=== PATIENT | female | born 1970 | race Caucasian/White ===

== ENCOUNTER → 2018-03-05 09:45 | Outpatient (CLI) | payer OTHER, SELFPAY ==
--- NOTE | 2018-03-05 09:48 | DI.MRI.S_ITS ---
PROCEDURE: MR SHOULDER RT WO CON INDICATIONS: RIGHT SHOULDER PAIN FROM FALL TECHNIQUE: Noncontrast oblique coronal T2 fast spin echo with fat saturation, oblique sagittal T1 spin echo and T2 fast spin echo with fat saturation, axial T1 spin echo and T2 fast spin echo with fat saturation through the shoulder. COMPARISON: [facility], MR, SHOULDER WITHOUT CONTRAST, 11/28/2012, 13:48. FINDINGS: Image quality: Excellent. Rotator cuff: There is tendinosis or low-grade articular and bursal surface partial-thickness tear involving distal supraspinatus and infraspinatus. Distal subscapularis tendinosis is seen. No full-thickness rotator cuff tendon rupture. Sagittal images demonstrate no significant muscle atrophy. Bones and bursae: There is extensive marrow edema involving the lateral portion of right femoral head and neck abdomen involving greater tuberosity. Cortical disruption involving anterolateral cortex of greater tuberosity is seen, consistent with a nondisplaced fracture in this region. No other area of abnormal marrow signal is seen. No other fracture or dislocation. Mild a.c. joint osteoarthritis is seen. without an os acromiale. Trace amount of subacromial-subdeltoid fluid is present. No gross loose body. Capsule and soft tissues: In the absence of intra-articular contrast, the labrum and glenohumeral ligaments appear intact. Mild degenerative changes of posterior labrum is again seen and not significantly changed. The long head of the biceps tendon demonstrates normal location and morphology. The rotator interval appears normal, without fibrosis. The coracohumeral ligament is normal in thickness. IMPRESSION: 1. Bony contusion and subtle nondisplaced fracture involving greater tuberosity of humeral head. No other fracture or dislocation. Mild a.c. joint arthritis. 2. Tendinosis and low-grade articular and bursal surface partial-thickness involving distal supraspinatus and infraspinatus. Distal subscapularis tendinosis. No full-thickness rotator cuff tendon tear. 3. No evidence of focal labral tear. Dictated by: Antione Milner M.D. on 03/05/2018 at 10:49 Approved by: Antione Milner M.D. on 03/05/2018 at 10:57
== END ==
PROVIDERS: Visit Provider Physician Assistant
DX: S42.254A Nondisplaced fracture of greater tuberosity of right humerus, initial encounter for closed fracture (principal); M19.011 Primary osteoarthritis, right shoulder
CPT/HCPCS: 73221

== ENCOUNTER → 2018-05-08 10:03 | Outpatient (CLI) | payer OTHER, SELFPAY ==
--- NOTE | 2018-05-08 | DI.MG.S_ITS ---
BILATERAL DIGITAL SCREENING MAMMOGRAM 3D/2D WITH CAD WITH AUGMENTATION: 05/08/2018 CLINICAL: Routine screening. Comparison is made to exams dated: 03/05/2017 mammogram, 12/28/2015 mammogram, and 09/07/2014 mammogram - [facility]. The tissue of both breasts is heterogeneously dense. This may lower the sensitivity of mammography. Current study was also evaluated with a Computer Aided Detection (CAD) system. Bilateral breast implants are intact. No significant masses, calcifications, or other findings are seen in either breast. There has been no significant interval change. IMPRESSION: NEGATIVE There is no mammographic evidence of malignancy. A 1 year screening mammogram is recommended.(05/09/2019) This exam was interpreted at Station ID: [id number]. NOTE: For mammograms, a report in lay terms will be sent to the patient. Approximately 15% of breast malignancies will not be visualized mammographically. In the management of a palpable breast mass, a negative mammogram must not discourage biopsy of a clinically suspicious lesion. Electronically Signed By: Jonny worrell/elodia:05/08/2018 11:37:11 letter sent: Normal Exam ACR BI-RADS Category 1: Negative 3341F
== END ==
DX: Z12.31 Encounter for screening mammogram for malignant neoplasm of breast (principal)
CPT/HCPCS: 77063; 77067

== ENCOUNTER → 2020-01-29 11:04 | Outpatient (CLI) | payer OTHER, SELFPAY ==
[2020-01-29 12:50] LABS: TSH w/ Reflex to FT4 2.21 uIU/mL (0.47-4.68)
== END ==
DX: Z78.0 Asymptomatic menopausal state (principal)
CPT/HCPCS: 36415; 83001; 84443

== ENCOUNTER → 2020-02-11 17:08 | Outpatient (CLI) | payer OTHER, SELFPAY ==
--- NOTE | 2020-02-11 17:18 | DI.MG.S_ITS ---
BILATERAL DIGITAL SCREENING MAMMOGRAM 3D/2D WITH CAD WITH AUGMENTATION: 02/11/2020 CLINICAL: Patient presents for routine screening. S/P bilateral augmentation. Comparison is made to exams dated: 05/08/2018 mammogram, 03/05/2017 mammogram, and 12/28/2015 mammogram - [facility]. The tissue of both breasts is heterogeneously dense. This may lower the sensitivity of mammography. Current study was also evaluated with a Computer Aided Detection (CAD) system. Bilateral breast implants are intact. No significant masses, calcifications, or other findings are seen in either breast. There has been no significant interval change. IMPRESSION: NEGATIVE There is no mammographic evidence of malignancy. A 1 year screening mammogram is recommended. This exam was interpreted at Station ID: [id number]. NOTE: For mammograms, a report in lay terms will be sent to the patient. Approximately 15% of breast malignancies will not be visualized mammographically. In the management of a palpable breast mass, a negative mammogram must not discourage biopsy of a clinically suspicious lesion. Electronically Signed By: Jonny worrell/elodia:02/12/2020 08:05:33 letter sent: Normal Exam ACR BI-RADS Category 1: Negative 3341F
== END ==
DX: Z12.31 Encounter for screening mammogram for malignant neoplasm of breast (principal); Z98.82 Breast implant status
CPT/HCPCS: 77063; 77067

== ENCOUNTER → 2020-03-06 08:34 | Outpatient (CLI) | payer OTHER, SELFPAY ==
[2020-03-07 20:30] LABS: COVID19 Sendout Not Detected (Not Detect)
== END ==
PROVIDERS: Visit Provider Nurse Practitioner
DX: Z11.59 Encounter for screening for other viral diseases (principal)
CPT/HCPCS: 87635

== ENCOUNTER 2020-03-09 13:39 | Day surgery (SDC) | payer OTHER, SELFPAY ==
[2020-03-02 15:00] VITALS: BMI 29.9
[2020-03-09] VITALS (8 sets, daily range): BP systolic 129–152; BP diastolic 76–111; PULSE 75–95; RESP 11–18; TEMP 35.7–36.6; O2SAT 95–100; BMI 29.9
--- NOTE | 2020-03-09 | DI.RAD.S_ITS ---
PROCEDURE: XR LUMBAR SPINE 2-3V INDICATIONS: L4-5 MICRODISCECTOMY TECHNIQUE: A total of 2 views of the lumbar spine were acquired. COMPARISON: [facility], , -SPINE 2-3 VIEWS, 01/28/2015, 10:54. FINDINGS: Bones: Preoperative evaluation showing port for access for L4-L5 microdiscectomy to be superimposed on the posterior elements of L4-L5. The laterality of port positioning on this straight frontal view is not available from the imaging. Soft tissues: Overlying bowel gas pattern is normal. No suspicious soft tissue calcifications. IMPRESSION: L3-4 posterior micro discectomy port localization but laterality is not provided from the images. Dictated by: Chris Pool M.D. on 03/09/2020 at 16:20 Approved by: Chris Pool M.D. on 03/09/2020 at 16:22
[2020-03-09] MEDS: LACTATED RINGERS 1,000 ML 42 ML IV (14:29)
--- NOTE | 2020-03-09 14:34 | PM.PREOP ---
Pre-operative Note COVID-19 COVID-19 status: Negative Result date/Date tested (Pos, Neg/Pending): 03/07/20 Interval Note History & Physical reviewed/Exam performed by Physician: Yes Changes to H&P: No
[2020-03-09] MEDS: CEFAZOLIN 2 GM/100 ML FROZ.PIGGY IV (15:00)
--- NOTE | 2020-03-09 15:30 | SUR.OPER ---
Prone on spine table, head in foam head support, padded chest and pelvic supports, gel pad at knees, lower legs supported by pillows; nipples, genitalia and toes free of pressure, arms secured on foam padded arm boards at <90 degrees abduction. Tape over blanket at thigh secured to table.
[2020-03-09] MEDS: BUPIVACAINE 0.25% W/ EPI 30 ML VIAL INJ (15:39)
--- NOTE | 2020-03-09 15:58 | P.OP_ITS ---
Operative Date/Time/Diagnoses Date of procedure: 03/09/20 Time of procedure: 14:58 Pre-op diagnosis: 1. L4-5 disc herniation 2. L4-5 spinal stenosis with radiculopathy Post-op diagnosis: same Procedure & Clinicians Procedure: 1. L4-5 left hemilaminectomy 2. Utilization of microsurgical technique and operating microscope Same procedure as scheduled: Yes Indications: Patient has been having chronic back pain and worsening lumbar radiculopathy. Patient failed multiple conservative management with worsening pain weakness and numbness in her lower extremity. Patient has been having difficulty performing activity of daily living. After discussing risks benefits of treatment options, patient elected proceed with surgery. Surgeon: Lu Otoole Cardiology Teacher: Candace Greene'Brien Click Yes if Unassisted: No Anesthesia Type: General Operative Notes Closure Type: primary Specimen(s): none sent Estimated Blood Loss (mL): 5 Blood products transfused: none Procedure in detail: Patient was seen in the preoperative area. Risks and benefits of the surgery was discussed with the patient. Informed consent was obtained from the patient and placed in the chart. Surgical site was marked. Patient was taken to the operative room. General anesthesia was administered. Prophylactic antibiotic was given to the patient less than 30 min before the incision was made. Patient was placed into a prone position on the Pablo table. Patient's back was then prepped and draped in the sterile fashion. Time- out was performed at this time. Using AP and lateral C-arm imaging the interval between L4-5 was identified and marked on patient's back. A 1 inch incision 1 in from midline was made on the left side. The fascia was incised in line with skin incision. Globus MARS retractors was placed inside the incision and docked onto the L4 lamina. Using microsurgical technique and operating microscope, a L4 hemilaminectomy was performed using a Kerrison rongeur. Liagamentum flavum was resected at the site of the hemilaminectomy. The disc space at L4-5 was identified. Microdiscectomy was performed by incising the annulus with #11 blade. Microcurettes and pituitary was used to removed herniated disc fragments of disc from the epidural space. After the microdiskectomy was completed, the area medial lateral superior and inferior to the area of the microdiskectomy was inspected and explored using a micro curette. No other impinging structure was identified. The wound was then irrigated with sterile normal saline. 40 mg Depo-Medrol was placed into the epidural space. The deep fascia was closed with 1-0 Vicryl. The subcutaneous tissue was closed with 2-0 Vicryl. The skin was closed with skin frances. Patient tolerated the procedure well. There were no complications. Patient was transferred recovery room in stable condition. Complications: none Post-operative Condition: stable Disposition: PACU Plan for aftercare: Discharge to home
[2020-03-09] MEDS: ACETAMINOPHEN 325 MG TABLET 650 MG PO (16:14)
[2020-03-09] MEDS: fentaNYL 100 MCG/2 ML INJ IV ×2 (16:25→16:29)
== END 2020-03-09 17:08 | disposition home or self-care (01) ==
PROVIDERS: Referring Provider Orthopaedic Surgery Orthopaedic Surgery of the Spine; Visit Provider Orthopaedic Surgery Orthopaedic Surgery of the Spine
PROC: (CPT 63030; principal; 2020-03-09 15:45)
DX: M51.16 Intervertebral disc disorders with radiculopathy, lumbar region (principal)
CPT/HCPCS: 63030; 72100; 76000; J0690; J1100; J2405; J2704; J2920; J3010

== ENCOUNTER → 2020-04-15 12:34 | Outpatient (CLI) | payer OTHER, SELFPAY ==
--- NOTE | 2020-04-15 12:36 | DI.RAD.S_ITS ---
PROCEDURE: XR SHOULDER LT MIN 2V INDICATIONS: l shoulder pain TECHNIQUE: 3 views of the shoulder were acquired. COMPARISON: [facility], , SHOULDER MINIMUM 2VIEW RIGHT, 10/28/2007, 15:09. FINDINGS: Bones: No fracture. Severe calcific tendinitis. Soft tissues: No suspicious soft tissue calcifications. IMPRESSION: Severe calcific tendinitis Dictated by: Bayron Fuentes M.D. on 04/15/2020 at 12:56 Approved by: Bayron Fuentes M.D. on 04/15/2020 at 12:59
== END ==
PROVIDERS: Referring Provider Physician Assistant; Visit Provider Physician Assistant
DX: M25.512 Pain in left shoulder (principal); M75.32 Calcific tendinitis of left shoulder
CPT/HCPCS: 73030

== ENCOUNTER 2020-04-24 17:39 | Emergency (ER) | payer OTHER, SELFPAY ==
[2020-04-24 17:42] VITALS: BP 197/106; PULSE 101; RESP 18; O2SAT 97; BMI 27.9
--- NOTE | 2020-04-24 18:31 | PC.NURSE ---
patient states it difficult to move the shoulder, states she has been using her right hand to move the left arm where she needs it for comfort.
--- NOTE | 2020-04-24 18:54 | ED_ITS ---
HPI - Extremity Injury (Upper) General Chief Complaint: Extremity Injury, Upper Stated Complaint: states severe tendenitis left shoulder Time Seen by Provider: 04/24/20 17:53 Source: patient and family Mode of arrival: Ambulatory Limitations: no limitations History of Present Illness HPI narrative: Patient here with . She states she is not not allergic to hydrocodone. She states opiates is make her stay awake. No rash or itching or trouble breathing. Patient here for left shoulder pain ongoing for past 2 weeks. Seen by urgent care recently and had Toradol without relief. Had x-ray on April 15, 2020 as well. Patient does have orthopedic provider that follows her for her shoulder pain on left and right side. Has appointment with him on May 05. Nearly 20 years ago had impingement surgery on both shoulders. Has been doing well with tendinitis until past 2 weeks. X-ray shows calcific tendinitis left shoulder. Pain posterior left shoulder radiates anteriorly. No numbness tingling or weakness. Increased pain with movement. Causing spasms to the left trapezius/neck. Does have a sling at home. Blood pressure noted. Blood pressure noted. She states is due to the pain in left shoulder. She has no history of high blood pressure. No headache no chest pain no dizziness no numbness tingling or weakness. Patient asymptomatic with a blood pressure. She understands will follow up with primary care this week for recheck. Related Data Home Medications Medication Instructions Recorded Confirmed cholecalciferol (vitamin D3) 1,000 iu PO BID #0 04/27/11 04/15/20 [Vitamin D3] Lactobacillus acidophilus 10,000 mmu cells PO DAILY 03/03/18 04/15/20 biotin 1 mg capsule 5,000 mg PO DAILY 01/26/20 04/15/20 vitamin B complex 1 tab PO DAILY 01/26/20 04/15/20 ascorbic acid (vitamin C) [Vitamin 500 mg PO DAILY 03/09/20 04/15/20 C] calcium carbonate [Calcium 500] 1,000 mg PO DAILY 03/09/20 04/15/20 magnesium citrate 300 mg PO DAILY 03/09/20 04/15/20 Previous Rx's Medication Instructions Recorded spironolactone 25 mg tablet 25 mg PO BID #180 tab 03/04/20 venlafaxine 75 mg capsule,extended 75 mg PO TID #270 cap 03/04/20 release 24 hr tramadol 50 mg PO Q8H PRN #30 tab 03/09/20 baclofen 20 mg PO BEDTIME #10 tab 04/24/20 hydrocodone-acetaminophen 1 tab PO Q8H PRN #14 tab 04/24/20 ondansetron 4 mg PO Q8H PRN #10 tab 04/24/20 Allergies Allergy/AdvReac Type Severity Reaction Status Date / Time codeine [CODEINE] AdvReac Mild MAKES ME Verified 04/15/20 12:09 OUT OF IT Review of Systems Review of Systems Narrative: GENERAL: Denies chills, fatigue, malaise, fever, sweats. HEENT: Denies sinus pain, ear pain, sore throat, difficulty swallowing, dizziness. RESPIRATORY: Denies dyspnea, cough, wheezing, hemoptysis, sputum. CARDIOVASCULAR: Denies chest pain, palpitations, orthopnea, edema, GASTROINTESTINAL: Denies nausea, vomiting, abdominal pain, diarrhea, constipation, melena. : Denies dysuria, frequency, incontinence, hematuria, urinary retention. MUSCULOSKELETAL: denies weakness, complains of joint pain, or bony pain SKIN: Denies rash, skin lesions NEUROLOGIC: Denies weakness, headache, numbness, change in speech, confusion, seizures, incoordination. PSYCHIATRIC: No concerning psychosocial issues. ROS Unobtainable: All systems reviewed & are unremarkable except as noted in HPI and below Patient History Surgical History History of carpal tunnel repair Hx of cholecystectomy (Acute) Status post breast augmentation Family History Father Age: 73 Non Hodgkin's lymphoma Heart attack Cancer Mother Age: 72 Stroke Type 2 diabetes mellitus Social History household members: spouse and children Smoking Status: Never smoker alcohol intake: current Smoking Status: Never smoker alcohol intake frequency: a few times a month Substance Use Type: marijuana Exam Narrative Exam Narrative: GENERAL: patient appears stated age. Well-nourished, well-developed patient, in no distress, not toxic HEAD: Atraumatic. Normocephalic. EYES: Pupils equal round and reactive. Extraocular motions intact. No scleral icterus. No injection or drainage. ENT: Nose without bleeding, purulent drainage. Throat without erythema, tonsillar hypertrophy or exudate. Airway patent. NECK: Trachea midline. No midline tenderness or step-off. There is left paracervical and trapezius muscle spasm and tenderness. EXTREMITIES: No edema examination left upper extremity. Strong chemical handler in radial pulse with light touch intact deltoid and fingertips and thumb. Patient in a gown. Nontender elbow and wrist. Able to supinate and pronate. Very limited range of motion at the shoulder due to pain. Unable to abduct fully to 90?. Unable to bring hand behind the back. Increased pain with forward flexion and internal and external rotation. BACK: Nontender without deformity or crepitance. No flank tenderness. NEURO: AOx4. SKIN: No rash or erythema of visible areas PSYCH: Not anxious, is cooperative Initial Vital Signs Initial Vital Signs: Vital Signs Pulse Rate 101 H 04/24/20 17:42 Respiratory Rate 18 04/24/20 17:42 Blood Pressure 197/106 H 04/24/20 17:42 Pulse Oximetry 97 04/24/20 17:42 Course Orders Ordered: Discontinued Medications Hydrocodone Bitart/Acetaminophen (Pateros 5/325) 2 tab PO NOW ONE Stop: 04/24/20 18:50 Last Admin: 04/24/20 18:58 Dose: 2 tab Documented by: YVETTE Dexamethasone (Decadron) 10 mg IM NOW ONE Stop: 04/24/20 18:48 Last Admin: 04/24/20 18:58 Dose: 10 mg Documented by: YVETTE Ondansetron HCl (Zofran Odt) 4 mg SL NOW ONE Stop: 04/24/20 18:48 Last Admin: 04/24/20 18:58 Dose: 4 mg Documented by: YVETTE Reevaluation(s) Reevaluation #1: Blood pressure improved, 162/77. Patient states pain is better. Elevated blood pressure likely due to pain on arrival. Since pain improved and blood pressure improved. Patient and desire discharge home Time: 20:05 Vital Signs Vital signs: Vital Signs - 8 hr 04/24/20 17:42 04/24/20 19:29 04/24/20 19:39 Pulse Rate 101 H 88 83 Respiratory Rate 18 16 16 Blood Pressure 197/106 H 176/100 H 155/72 H Pulse Oximetry 97 100 96 MDM - Extremity Injury (Upper) Differential Diagnosis Differential diagnosis: Likely other (Shoulder strain/calcific tendinitis) Imaging Data Extremity x-ray #1: Radiologist's Impression: [address] [id number] XRay Report Signed Patient: Loi Hernandez KMR#: [id number] : 1970Acct:[id number] Age/Sex: 49 / FDate of Service: 04/15/20 Loc: RAD Accession Number: [id number] Procedure: XR shoulder LT min 2V Ordering Provider: Rani Wilson P.A-C PROCEDURE: XR SHOULDER LT MIN 2V INDICATIONS: l shoulder pain TECHNIQUE: 3 views of the shoulder were acquired. COMPARISON: [facility], , SHOULDER MINIMUM 2VIEW RIGHT, 10/28/2007, 15:09. FINDINGS: Bones: No fracture. Severe calcific tendinitis. Soft tissues: No suspicious soft tissue calcifications. IMPRESSION: Severe calcific tendinitis Dictated by: Bayron Fuentes M.D. on 04/15/2020 at 12:56 Approved by: Bayron Fuentes M.D. on 04/15/2020 at 12:59 [facility] Narrative Medical decision making narrative: Patient agree to remove hydrocodone as allergy as she does not have allergy to it just keeps her awake. Agrees with trial of hydrocodone and will stop tramadol at home. She has had steroid shots in the past. Agrees with Decadron 1 time dose here. Also agrees with baclofen at nighttime for muscle spasm in the left neck and shoulder. is driving. Blood pressure noted. Patient states related to the pain. Patient is asymptomatic with elevated blood pressure and will likely improve with pain control. She will follow-up with family physician this week for recheck of blood pressure. Discharge Plan Departure Patient Disposition: Home Clinical Impression: Calcific tendinitis, Muscle spasm Discharge Date/Time: 04/24/20 20:11 Instructions: DI for Calcific Tendonitis of the Shoulder, DI for Muscle Spasm Activity Restrictions/Additional Instructions: See family doctor this week for recheck of blood pressure. See your orthopedic provider as scheduled. No operating machinery or driving while on pain medication. Do not take your tramadol while on new pain medication. Return if worse or if any questions or concerns. Prescriptions have been sent to [facility] Prescriptions: New baclofen 20 mg tablet 20 mg PO BEDTIME Qty: 10 RF: 0 hydrocodone-acetaminophen 7.5-325 mg tablet 1 tab PO Q8H PRN (Reason: pain) Qty: 14 RF: 0 ondansetron 4 mg tablet,disintegrating 4 mg PO Q8H PRN (Reason: nausea and vomiting) Qty: 10 RF: 0 No Action Lactobacillus acidophilus [Acidophilus] capsule 10,000 mmu cells PO DAILY RF: 0 cholecalciferol (vitamin D3) [Vitamin D3] 1,000 UNIT tablet 1,000 iu PO BID Qty: 0 RF: 0 spironolactone 25 mg tablet 25 mg PO BID Qty: 180 RF: 3 venlafaxine 75 mg capsule,extended release 24hr 75 mg PO TID Qty: 270 RF: 3 biotin 1 mg capsule 5,000 mg PO DAILY RF: 0 vitamin B complex [B Complex-Vitamin B12] Tablet 1 tab PO DAILY RF: 0 ascorbic acid (vitamin C) [Vitamin C] 500 mg Tablet,Chewable 500 mg PO DAILY RF: 0 calcium carbonate [Calcium 500] 500 mg calcium (1,250 mg) Tablet,Chewable 1,000 mg PO DAILY RF: 0 magnesium citrate 100 mg Tablet 300 mg PO DAILY RF: 0 tramadol 50 mg tablet 50 mg PO Q8H PRN (Reason: pain) Qty: 30 RF: 0
[2020-04-24] MEDS: ONDANSETRON 4 MG ODT SL (18:58)
[2020-04-24] MEDS: HYDROCODONE/ACET 5/325 TABLET 2 TAB PO (18:58)
[2020-04-24] MEDS: DEXAMETHASONE 10 MG/ML VIAL IM (18:58)
[2020-04-24 19:29] VITALS: BP 176/100; PULSE 88; RESP 16; O2SAT 100
[2020-04-24 19:39] VITALS: BP 155/72; PULSE 83; RESP 16; O2SAT 96
== END 2020-04-24 20:11 | disposition home or self-care (01) ==
PROVIDERS: Emergency Provider Emergency Medicine
DX: M65.20 Calcific tendinitis, unspecified site (principal); M62.838 Other muscle spasm
CPT/HCPCS: 96372; 99283; J1100

== ENCOUNTER → 2021-02-23 11:05 | Outpatient (CLI) | payer OTHER, SELFPAY ==
--- NOTE | 2021-02-23 | DI.MG.S_ITS ---
BILATERAL DIGITAL SCREENING MAMMOGRAM 3D/2D WITH CAD WITH AUGMENTATION: 02/23/2021 CLINICAL: Routine screening. Comparison is made to exams dated: 02/11/2020 mammogram, 05/08/2018 mammogram, and 03/05/2017 mammogram - [facility]. The tissue of both breasts is heterogeneously dense. This may lower the sensitivity of mammography. Current study was also evaluated with a Computer Aided Detection (CAD) system. Bilateral breast implants are intact. There are benign calcifications in both breasts. No significant masses, calcifications, or other findings are seen in either breast. There has been no significant interval change. IMPRESSION: BENIGN There is no mammographic evidence of malignancy. A 1 year screening mammogram is recommended. This exam was interpreted at Station ID: [id number]. NOTE: For mammograms, a report in lay terms will be sent to the patient. Approximately 15% of breast malignancies will not be visualized mammographically. In the management of a palpable breast mass, a negative mammogram must not discourage biopsy of a clinically suspicious lesion. Electronically Signed By: Marjorie muir/elodia:02/23/2021 12:09:48 letter sent: Normal Exam ACR BI-RADS Category 2: Benign Finding(s) 3342F
== END ==
PROVIDERS: Referring Provider Obstetrics & Gynecology; Visit Provider Obstetrics & Gynecology
DX: Z12.31 Encounter for screening mammogram for malignant neoplasm of breast (principal)
CPT/HCPCS: 77063; 77067

== ENCOUNTER → 2021-07-19 09:22 | Outpatient (CLI) | payer OTHER, SELFPAY ==
[2021-07-19 11:11] LABS: COVID19 -Nasal RAPID Negative (Negative)
== END ==
PROVIDERS: Visit Provider Physician Assistant
DX: Z20.822 Contact with and (suspected) exposure to COVID-19 (principal)
CPT/HCPCS: 87635

== ENCOUNTER 2021-07-21 09:46 | Day surgery (SDC) | payer OTHER, BC, SELFPAY ==
[2021-07-20 08:06] VITALS: BMI 29.4
[2021-07-21] VITALS (8 sets, daily range): BP systolic 112–162; BP diastolic 60–96; PULSE 60–112; RESP 8–16; TEMP 36.3–37; O2SAT 96–100; BMI 29.4
[2021-07-21] MEDS: LACTATED RINGERS 1,000 ML 42 ML IV ×2 (10:48→13:38)
--- NOTE | 2021-07-21 11:21 | PM.PREOP ---
Pre-operative Note COVID-19 COVID-19 status: Negative Result date/Date tested (Pos, Neg/Pending): 07/19/21 Interval Note History & Physical reviewed/Exam performed by Physician: Yes Changes to H&P: No
--- NOTE | 2021-07-21 11:22 | P.OP_ITS ---
Operative Date/Time/Diagnoses Date of procedure: 07/21/21 Time of procedure: 11:22 Pre-op diagnosis: Left Achilles tendonitis, heel spur Post-op diagnosis: other (Left Achilles tendonitis, heel spur, gastrocnemius equinus) Procedure & Clinicians Procedure: Left retrocalcaneal exostectomy with Achilles debridement and reanchoring of tendon. Left gastrocnemius recession. Same procedure as scheduled: Yes Indications: 51 yo female with painful Achilles tendonitis with heel spur and tight calf. Conservative measures failed to alleviate her pain and she wished to have surgical intervention at this time. We spoke of the risks potential complications as well as expected outcomes. Consent was signed, no contraindications to the procedure at this time. Surgeon: Monica Harrington Click Yes if Unassisted: Yes Anesthesia Type: General Operative Notes Closure Type: primary Specimen(s): none sent Prosthetic devices, grafts, tissues, transplants, or devices: Arthrex Achilles Speed Bridge Estimated Blood Loss (mL): 10 Blood products transfused: none Tourniquet time (min): 90 Procedure in detail: After a lower extremity block was performed by Anesthesia in the preoperative holding area the patient was brought to the operating room. Next she was placed under general anesthesia by the anesthesiologist and carefully positioned prone on operative table, well padded and appropriately aligned. The foot and ankle were prepped and draped in the usual aseptic manner. The tourniquet was inflated to the thigh. After a check of anesthesia a check of the available dorsiflexion of the foot on the ankle with the knee straight was rendered and this showed to be significantly tight and, less than 10? beyond 90. The decision was made to go ahead and proceed with a gastrocnemius recession. Incision was made on the posterior calf just slightly medial to midline at the level of gastroc soleal complex. The incision was deepened through subcutaneous tissue avoiding the neurovascular bundles, cauterizing bleeders as necessary. T he aponeurosis of the gastrocnemius was noted. This was incised and gently reflected. Verified to show the muscle fibers underneath of the soleus muscle belly. The aponeurosis was divided and separate sections were transected at the most distal aspect medially and laterally and then this by about 3 cm, a separate central incision proximally. These were connected and allowed the slide of the aponeurosis. This allowed there to be much more flexibility at this point in the ankle dorsiflexion. The area was irrigated with copious amounts of normal sterile saline. Once lengthening was achieved 3 0 Vicryl was used to suture the arms of the release on either side. 4-0 Vicryl was used to close the deep fascia and paratenon and 4-0 was also used to close the subcutaneous tissues. Next, an incision was made on the posterior aspect of the left calcaneus at the insertion point of the Achilles to the heel. The incision was deepened through subcutaneous tissues being careful to identify and retract all vital neural and vascular structures. All bleeders were cauterized and ligated as necessary. The capsule surrounding the Achilles tendon was gently opened and reflected and the enlarged insertion point of the Achilles tendon was noted. The insertion was divided centrally and Achilles tendon was reflected laterally and medially. This exposed areas of the tendon that were significantly thickened as well as the thick bony spur. Care was taken to reduce some of the thickened scarred areas of the tendon distally. An osteotome was used to chamfer away the posterior spurring of the calcaneus. This was then gently smoothed with a rasp. The area was irrigated with copious amounts of normal sterile saline. Following the technique of the Arthrex SpeedBridge, drill holes were placed proximally on the posterior aspect of the calcaneus just medial and lateral of center. They were then tapped and each anchor was inserted. Once appropriately seated the FiberWire attached to the anchor was brought up through the Achilles tendon at the appropriate location. Next, distally on the calcaneus another set of 2 holes were drilled in the same manner and tapped. Following the Speed Bridge protocol, under appropriate tension threading each of the 2 sides of the more proximal anchors suture, this was then placed in each of the holes. Each of these 2 anchors were then seated appropriately and was under good tension. Excess fiber tape was trimmed. A free needle was used to take some of the included FiberWire suture on each side and reinforce the attachment. Care was taken to not make this a proud knot. 3-0 Vicryl throughout and two small distal 2-0 Ethibond sutures were used to reinforce and repair the remainder of the Achilles tendon and range of motion was available and strong. The area was irrigated once more with normal sterile saline Tendon capsule was then repaired and subcutaneous closure was performed with Vicryl. The tourniquet was deflated, a prompt hyperemic response was seen to the foot and ankle. Skin was closed with nylon and she was placed in a sterile lightly compressive dressing. She was then also placed in her postoperative boot. She was transferred to the PACU with vital signs stable and vascular status intact. Post-operative Condition: stable Disposition: PACU Plan for aftercare: Following a period of postoperative monitoring, the patient will be discharged to home on written and oral postoperative instructions including keeping the dressing dry and intact, non-weightbearing to the foot, icing and elevating the foot when seated home. DVT prevention techniques have been reviewed. For the 1st postoperative visit the dressing will be changed and close to the 3rd postoperative week we will likely remove the sutures.
--- NOTE | 2021-07-21 11:40 | SUR.PREOP ---
11: 15 am. Preop nerve block left lower leg preformed by Dr merlos , after seen by Dr Harrington & Madalyn [employer] SPECIALIST. Monitors/oxygen at 2l nc placed. NSR. vs q5 minutes-see sheet. 11:28-Procedure completed. Pt tolerated procedure well. awake and alert. Pt States : It feels like a time for a nap. 11:40-To OR with RECEIV[employer] SPECIALIST, Margarita. Post op boot given to Madalyn.
[2021-07-21] MEDS: CEFAZOLIN 2 GM/20 ML SYRINGE IV (11:55)
--- NOTE | 2021-07-21 12:19 | SUR.OPER ---
Addendum entered by Madalyn Gama R.N. 07/21/21 12:48: safety belt to lower torso/hip area as patient has left thigh tourniquet. Original Note: Prone on padded OR bed, head in foam head support, gel chest rolls, gel pad under knees, pillow under lower legs, toes free of pressure, arms secured on padded arm boards at <90 degrees abduction. Safety belt at thigh.
--- NOTE | 2021-07-21 12:19 | SUR.OPER ---
extra piloow under feet
--- NOTE | 2021-07-21 12:22 | SUR.OPER ---
niko # [id number].... [facility] [place] [id number]
[2021-07-21] MEDS: BUPIVACAINE 0.5% W/ EPI (PF) 30 ML VIAL INJ (13:14)
--- NOTE | 2021-07-21 14:40 | SUR.PHASEI ---
Received to PACU after general anesthesia. Airway patent, self maintained. Report from Dr Pappas and TAVON Bergman.
--- NOTE | 2021-07-21 15:56 | SUR.PHASEII ---
Xochitl Baxter RN did Discharge instruction/ paperwork with pt .
== END 2021-07-21 15:20 | disposition home or self-care (01) ==
PROVIDERS: Referring Provider Podiatrist; Visit Provider Podiatrist
PROC: (CPT 27654; principal; 2021-07-21 11:15)
PROC: (CPT 27687; 2021-07-21 11:15)
DX: M76.62 Achilles tendinitis, left leg (principal); M62.462 Contracture of muscle, left lower leg; M77.32 Calcaneal spur, left foot
CPT/HCPCS: 27654; 28120; 27687; 64450; J0690; J2250; J3010

== ENCOUNTER → 2022-03-12 11:29 | Outpatient (CLI) | payer OTHER, BC, SELFPAY ==
--- NOTE | 2022-03-12 | DI.MG.S_ITS ---
BILATERAL DIGITAL SCREENING MAMMOGRAM 3D/2D WITH CAD WITH AUGMENTATION: 03/12/2022 CLINICAL: Routine screening. Comparison is made to exams dated: 02/23/2021 mammogram, 02/11/2020 mammogram, and 05/08/2018 mammogram - [facility]. The tissue of both breasts is heterogeneously dense. This may lower the sensitivity of mammography. Current study was also evaluated with a Computer Aided Detection (CAD) system. Bilateral breast implants are intact. There are benign calcifications in both breasts. No significant masses, calcifications, or other findings are seen in either breast. There has been no significant interval change. IMPRESSION: BENIGN There is no mammographic evidence of malignancy. A 1 year screening mammogram is recommended. Based on the Tyrer Cuzick model (a risk assessment model) the patient's lifetime risk is 11.3% and her 10 year risk is 2.9%. According to the ACR, ACS, and NCCN guidelines, an annual breast MRI exam along with mammogram is recommended if the patient's lifetime risk is 20% or greater. This exam was interpreted at Station ID: [id number]. NOTE: For mammograms, a report in lay terms will be sent to the patient. Approximately 15% of breast malignancies will not be visualized mammographically. In the management of a palpable breast mass, a negative mammogram must not discourage biopsy of a clinically suspicious lesion. Electronically Signed By: Swapnil Aponte M.D., jr/elodia:03/12/2022 14:53:37 letter sent: Normal Exam ACR BI-RADS Category 2: Benign Finding(s) 3342F
== END ==
PROVIDERS: Referring Provider Obstetrics & Gynecology; Visit Provider Obstetrics & Gynecology
DX: Z12.31 Encounter for screening mammogram for malignant neoplasm of breast (principal)
CPT/HCPCS: 77063; 77067

== ENCOUNTER → 2022-03-13 13:01 | Outpatient (CLI) | payer OTHER, BC, SELFPAY | PROVIDERS: Visit Provider Nurse Practitioner Critical Care Medicine | DX: J02.9 Acute pharyngitis, unspecified (principal) | CPT/HCPCS: 87070; 87077; 87186 ==

== ENCOUNTER → 2022-03-16 08:44 | Outpatient (CLI) | payer OTHER, BC, SELFPAY ==
--- NOTE | 2022-03-16 | DI.RAD.S_ITS ---
PROCEDURE: FL BARIUM SWALLOW INDICATIONS: GLOBUS SENSATION COMPARISON: None. FINDINGS: Function: Both the cervical and thoracic esophagus were evaluated. There is no cervical esophageal stricture or web or Zenker's diverticulum. There is normal thoracic esophageal peristalsis. No elicited gastroesophageal reflux. There is normal transit of a calibrated barium tablet through the esophagus into the stomach. Morphology: Air-contrast images demonstrate normal mucosal morphology. Single contrast views show no esophageal strictures, extrinsic mass effects, or diverticula. Limited images of the stomach demonstrate normal appearance. IMPRESSION: Unremarkable cervical and thoracic barium esophagram. Dictated by: Haja Harrell M.D. on 03/16/2022 at 17:01 Approved by: Haja Harrell M.D. on 03/16/2022 at 17:01
== END ==
PROVIDERS: Referring Provider Otolaryngology; Visit Provider Otolaryngology
DX: R19.8 Other specified symptoms and signs involving the digestive system and abdomen (principal); R13.19 Other dysphagia; R43.8 Other disturbances of smell and taste
CPT/HCPCS: 74220

== ENCOUNTER 2022-03-25 12:10 | Emergency (ER) | payer OTHER, BC, SELFPAY ==
[2022-03-25 12:18] VITALS: BP 135/75; PULSE 78; RESP 18; TEMP 36.6; O2SAT 100
--- NOTE | 2022-03-25 12:24 | DI.RAD.S_ITS ---
PROCEDURE: XR CHEST 1V INDICATIONS: short of breath TECHNIQUE: One view of the chest was acquired. COMPARISON: [facility], , CHEST 1 VIEW, 12/19/2012, 9:28. FINDINGS: Surgical changes and devices: None. Lungs and pleura: Lungs are clear. No pleural effusions or pneumothorax. Mediastinum: Mediastinal contours appear normal. Heart size is normal. Bones and chest wall: No suspicious bony lesions. Overlying soft tissues appear unremarkable. IMPRESSION: No acute cardiopulmonary findings Approved by: Alf Polanco M.D. on 03/25/2022 at 12:46
[2022-03-25 15:01] VITALS: BP 155/69; PULSE 64; RESP 20; O2SAT 99
--- NOTE | 2022-03-25 16:13 | ED_ITS ---
HPI - URI/Sore Throat <Cristino Gutierres PA-C - Last Filed: 03/25/22 20:03> General Chief Complaint: Upper Respiratory Symptoms Stated Complaint: throat feels like something stuck still Time Seen by Provider: 03/25/22 12:17 Source: patient Mode of arrival: Ambulatory History of Present Illness HPI Narrative: Patient is a 51-year-old female who presents to the emergency room today complaint continued sensation of foreign body in throat. Patient states this started about 3 months ago and that she went to the walk-in clinic to be seen for this on the of this month. Patient states she was ?while in the walk- in clinic and nothing was found in regards to foreign body obstruction. Patient also saw the ENT provider that day and had an endoscopy done that was also negative. Patient states that while she was at the walk-in clinic they did a bacterial culture and that she was treated with Augmentin antibiotic that day. She states she completed the antibiotics yesterday. Has a follow-up appointment scheduled with ENT on May 10. Her main concern today is making sure that her infection has resolved and that this issue isn't worsening. In regards to the sensation she does not feel that it is worsening. Denies any pain in chest or throat. Describes sensation as a heaviness in her lower throat upper chest area. Denies any difficulty breathing swallowing or eating. Related Data Home Medications Medication Instructions Recorded Confirmed cholecalciferol (vitamin D3) 25 1,000 iu PO BID ##0 04/27/11 07/20/21 mcg (1,000 unit) tablet (Vitamin D3) Lactobacillus acidophilus 10,000 mmu cells PO DAILY 03/03/18 07/21/21 (Acidophilus capsule) biotin 1 mg capsule 5,000 mg PO DAILY 01/26/20 07/21/21 vitamin B complex (B 1 tab PO DAILY 01/26/20 07/20/21 Complex-Vitamin B12 tablet) ascorbic acid (vitamin C) 500 mg 500 mg PO DAILY 03/09/20 07/21/21 chewable tablet (Vitamin C) calcium carbonate 500 mg calcium 1,000 mg PO DAILY 03/09/20 07/20/21 (1,250 mg) chewable tablet (Calcium 500) magnesium citrate 100 mg tablet 300 mg PO DAILY 03/09/20 07/20/21 Previous Rx's Medication Instructions Recorded venlafaxine 75 mg capsule,extended 75 mg PO TID #270 caps 02/14/21 release 24 hr spironolactone 25 mg tablet 25 mg PO BID #180 tabs 02/14/22 nystatin 100,000 unit/mL oral 1 ml PO DAILY #60 mL 03/15/22 suspension progesterone micronized 100 mg 100 mg PO BEDTIME #30 caps 03/27/22 capsule (Prometrium) Allergies Allergy/AdvReac Type Severity Reaction Status Date / Time codeine [CODEINE] AdvReac Mild MAKES ME Verified 03/13/22 12:46 OUT OF IT Review of Systems <Cristino Gutierres PA-C - Last Filed: 03/25/22 20:03> Review of Systems Narrative: R.O.S.: General: No fever, chills or fatigue. Cardiovascular: No chest pain or palpitations Respiratory: No S.O.B. HEENT: Sensation of foreign body in throat for 3 months Gastrointestinal: No nausea or vomiting Skin: No rash or associated abnormalities Neurological: Awake, alert and in not apparent distress. No Headaches, changes in vision or other related neurological concerns. Back: No CVA tenderness Patient History <Cristino Gutierres PA-C - Last Filed: 03/25/22 20:03> Medical History Acne Anxiety and depression Elevated BP without diagnosis of hypertension Gestational diabetes Menopausal symptom Surgical History History of carpal tunnel repair History of foot surgery (2010) History of lumbar discectomy (03/09/20) History of shoulder surgery Hx of cholecystectomy Status post breast augmentation Family History Father Age: 75 Non Hodgkin's lymphoma Heart attack Cancer Mother Age: 74 Stroke Type 2 diabetes mellitus Social History household members: spouse and children Smoking Status: Never smoker alcohol intake: current Smoking Status: Never smoker alcohol intake frequency: a few times a month Substance Use Type: marijuana Exam <Cristino Gutierres PA-C - Last Filed: 03/25/22 20:03> Narrative Exam Narrative: Physical Exam: General: Normal appearance, well developed, well nourished, alert, and awake. Not in acute distress. ? Head: Normocephalic, no lesions. ?? Eyes: PERRLA, EOM's full, conjunctivae clear. ? Ears: EAC's clear, TM's normal. ?? Throat: Clear, no exudates, no lesions. ?? Neck: Supple, no masses, no thyromegaly, no bruits. ?? Chest: Lungs clear, no rales, no rhonchi, no wheezes. ?? Heart: RR, no murmurs, no rubs, no gallops. ?? Neuro: Physiological, no localizing findings, CN2-12 intact. ?? Extremities: Warm, well perfused, FROM, no deformities, no edema, no erythema. ?? PSYCHIATRIC: The mood is good, no blunted affect. Speech is clear. Thought process is linear, thought content is appropriate. The voice is without signi ficant inflection.. Back: Negative for CVA tenderness Initial Vital Signs Initial Vital Signs: Vital Signs Temperature 97.8 F 03/25/22 12:18 Pulse Rate 78 03/25/22 12:18 Respiratory Rate 18 03/25/22 12:18 Blood Pressure 135/75 03/25/22 12:18 Pulse Oximetry 100 03/25/22 12:18 Oxygen Delivery Method 03/25/22 12:18 <Zachary Klein DO - Last Filed: 03/27/22 13:15> Initial Vital Signs Initial Vital Signs: Vital Signs Temperature 97.8 F 03/25/22 12:18 Pulse Rate 78 03/25/22 12:18 Respiratory Rate 18 03/25/22 12:18 Blood Pressure 135/75 03/25/22 12:18 Pulse Oximetry 100 03/25/22 12:18 Oxygen Delivery Method 03/25/22 12:18 Course <Cristino Gutierres PA-C - Last Filed: 03/25/22 20:03> Orders Ordered: ED Orders 03/25/22 12:24 XR chest 1V Stat 03/25/22 16:50 CBC Auto Diff [Complete Blood Count AUTO DIFF] Stat CMP [Comprehensive Metabolic Panel] Stat 03/25/22 17:00 Throat Culture Stat 03/25/22 17:07 Urine Culture Stat Urine Microscopic Stat Vital Signs Vital signs: Vital Signs - 8 hr 03/25/22 12:18 03/25/22 15:01 03/25/22 18:12 Temperature 97.8 F Pulse Rate 78 64 75 Respiratory Rate 18 20 20 Blood Pressure 135/75 155/69 H Pulse Oximetry 100 99 99 Oxygen Delivery Method Room Air Room Air Room Air <Zachary Klein DO - Last Filed: 03/27/22 13:15> Orders Ordered: ED Orders 03/25/22 12:24 XR chest 1V Stat 03/25/22 16:50 CBC Auto Diff [Complete Blood Count AUTO DIFF] Stat CMP [Comprehensive Metabolic Panel] Stat 03/25/22 17:00 Throat Culture Stat 03/25/22 17:07 Urine Culture Stat Urine Microscopic Stat Vital Signs Vital signs: Vital Signs - 8 hr 03/25/22 12:18 03/25/22 15:01 03/25/22 18:12 Temperature 97.8 F Pulse Rate 78 64 75 Respiratory Rate 18 20 20 Blood Pressure 135/75 155/69 H Pulse Oximetry 100 99 99 Oxygen Delivery Method Room Air Room Air Room Air MDM - URI/Sore Throat <Cristino Gutierres PA-C - Last Filed: 03/25/22 20:03> Lab Data Result diagrams: 03/25/22 16:50 03/25/22 16:50 Labs: Lab Results 03/25/22 03/25/22 03/25/22 Range/Units 16:50 16:50 17:07 WBC 5.4 (4.5-11.0) X10^3/uL RBC 4.39 (4.0-5.2) X10^6/uL Hgb 13.4 (12.0-16.0) g/dL Hct 39.6 (36-46) % MCV 90.0 (80-100) fL MCH 30.5 (26-34) PG MCHC 33.9 (30-36) % RDW 14.1 (11.6-14.8) % Plt Count 293 (150-400) X10^3/uL Neut % (Auto) 64.1 (50-75) % Lymph % (Auto) 27.6 (25-40) % Randall % (Auto) 6.1 (3-14) % Eos % (Auto) 1.6 L (2-4) % Baso % (Auto) 0.6 (0-2) % Neut # (Auto) 3500 (5811-4063) /uL Lymph # (Auto) 1500 (1289-7565) /uL Randall # (Auto) 300 (0-900) /uL Eos # (Auto) 100 (0-450) /uL Baso # (Auto) 0 (0-100) /uL Sodium 141 (137-145) mmol/L Potassium 4.4 (3.4-5.1) mmol/L Chloride 108 H (98-107) mmol/L Carbon Dioxide 26 (22-32) mmol/L BUN 11 (7-17) mg/dL Creatinine 0.99 (0.52-1.04) mg/dL Estimated GFR > 60 (>60) mL/min BUN/Creatinine Ratio 11.1 (6-22) Glucose 96 (70-100) mg/dL Calcium 9.3 (8.4-10.2) mg/dL Total Bilirubin 0.4 (0.2-1.3) mg/dL AST 25 (14-36) IU/L ALT 19 (<35) IU/L Alkaline Phosphatase 85 (38-126) U/L Total Protein 8.1 (6.3-8.2) g/dL Albumin 4.4 (3.5-5.0) g/dL Globulin 3.7 (1.7-4.1) g/dL Albumin/Globulin Ratio 1.2 (1.0-2.8) Urine RBC 1-5/hpf (0-5/HPF) Urine WBC 0-1/hpf (0-5/HPF) Ur Squamous Epith Cells 1-5 /hpf (0-5/HPF) Amorphous Sediment 1+ Urine Bacteria None seen (None) Urine Mucus 2+ H (Negative) Ur Culture Indicated? Cult not indicated Urine Dip Bedside Urine Glucose Negative Bedside Urine Bilirubin - Negative Bedside Urine Ketone - Negative Urine Specific [place] 1.030 Bedside Urine Occult Blood +/- Bedside Urine pH 5.5 Bedside Urine Protein - Negative Bedside Urine Urobilinogen - Negative Bedside Urine Nitrite - Negative Bedside Urine Leukocytes - Negative Esterase MDM Narrative Medical decision making narrative: Patient is a 51-year-old female presents to the emergency room today with complaint of continued sensation of foreign body in her throat. Has been seen in the week for this condition where she received antibiotics for viral i nfection in her throat. Has also been seen by ENT where she had a negative endoscopy done. Has completed antibiotics and her main concern today is making sure she does not have a continued infection for which she follows up with her ENT provider. Physical exam was unremarkable upon review of the patient's chart was noted that the patient was positive for Enterobacter Gergoviae. He was also noted that this bacteria is very sensitive to Augmentin which the patient completed yesterday. Labs today were ordered to rule out infection in the included CBC CMP urine POC strep throat and repeat throat culture. [facility] or emergent [facility] department should any urgent or emergent co ncerns arise. Urine results today were negative. Patient advised that she will be informed about the throat culture results should any concerns arise. Patient also advised to follow-up with ENT as scheduled on May 14 for foreign body sensation in throat. Patient also advised to contact her PCP should any non urgent emergent concerns arise. Patient advised to return to [facility] urgent or emergency department should any urgent or emergent concerns arise. The patient agrees this plan. <Zachary Klein, DO - Last Filed: 03/27/22 13:15> Lab Data Labs: Lab Results 03/25/22 03/25/22 03/25/22 Range/Units 16:50 16:50 17:07 WBC 5.4 (4.5-11.0) X10^3/uL RBC 4.39 (4.0-5.2) X10^6/uL Hgb 13.4 (12.0-16.0) g/dL Hct 39.6 (36-46) % MCV 90.0 (80-100) fL MCH 30.5 (26-34) PG MCHC 33.9 (30-36) % RDW 14.1 (11.6-14.8) % Plt Count 293 (150-400) X10^3/uL Neut % (Auto) 64.1 (50-75) % Lymph % (Auto) 27.6 (25-40) % Randall % (Auto) 6.1 (3-14) % Eos % (Auto) 1.6 L (2-4) % Baso % (Auto) 0.6 (0-2) % Neut # (Auto) 3500 (1013-5402) /uL Lymph # (Auto) 1500 (5451-5085) /uL Randall # (Auto) 300 (0-900) /uL Eos # (Auto) 100 (0-450) /uL Baso # (Auto) 0 (0-100) /uL Sodium 141 (137-145) mmol/L Potassium 4.4 (3.4-5.1) mmol/L Chloride 108 H (98-107) mmol/L Carbon Dioxide 26 (22-32) mmol/L BUN 11 (7-17) mg/dL Creatinine 0.99 (0.52-1.04) mg/dL Estimated GFR > 60 (>60) mL/min BUN/Creatinine Ratio 11.1 (6-22) Glucose 96 (70-100) mg/dL Calcium 9.3 (8.4-10.2) mg/dL Total Bilirubin 0.4 (0.2-1.3) mg/dL AST 25 (14-36) IU/L ALT 19 (<35) IU/L Alkaline Phosphatase 85 (38-126) U/L Total Protein 8.1 (6.3-8.2) g/dL Albumin 4.4 (3.5-5.0) g/dL Globulin 3.7 (1.7-4.1) g/dL Albumin/Globulin Ratio 1.2 (1.0-2.8) Urine RBC 1-5/hpf (0-5/HPF) Urine WBC 0-1/hpf (0-5/HPF) Ur Squamous Epith Cells 1-5 /hpf (0-5/HPF) Amorphous Sediment 1+ Urine Bacteria None seen (None) Urine Mucus 2+ H (Negative) Ur Culture Indicated? Cult not indicated Urine Dip Bedside Urine Glucose Negative Bedside Urine Bilirubin - Negative Bedside Urine Ketone - Negative Urine Specific [place] 1.030 Bedside Urine Occult Blood +/- Bedside Urine pH 5.5 Bedside Urine Protein - Negative Bedside Urine Urobilinogen - Negative Bedside Urine Nitrite - Negative Bedside Urine Leukocytes - Negative Esterase Discharge Plan Departure Patient Disposition: Home Clinical Impression: Foreign body sensation in throat Instructions: Throat Culture Activity Restrictions/Additional Instructions: *You have been diagnosed with [continue sensation of foreign body in your Throat and follow-up treatment of bacterium throat.] As we discussed I ordered labs to check for infection and they were all negative. Those included blood in urine. Also as we discussed I reordered cultures of her throat. I also checked to confirm that the antibiotic she took most sensitive for the bacterium had in your previous throat culture. We should have the culture results in a few days and will contact you if there are any concerns. I suggest you continue to follow-up your ENT follow-up in regards to a foreign body sensation in your throat. I also suggest she contact her PCP should any non urgent emergent concerns arise. And I suggest to return to [facility] as he emergent or urgent department should any emergent concerns arise. *What to do: *Please continue to take your regular medications as directed. [ ] New medication prescriptions sent to your pharmacy: [ ] [ ] New medication written as a paper prescription [x] No new medications given *Please follow up with your primary care provider in 2-3 days, call for an appointment. Let them know you were seen in the Emergency Department and that we ask that you be seen in follow up. We will electronically transmit a record of today's note if your PCP is in our system *If you do not have a primary care provider please contact the [facility] Resource line at [phone]. They will ask some questions about your medical history and help get you set up with a doctor in the community. *Return to Emergency Department if you should have any new, worsening or concerning symptoms, such as [fever greater than 101 F, shaking chills, worsening pain, persistent vomiting or other bothersome symptoms] Prescriptions: No Action Lactobacillus acidophilus [Acidophilus] capsule 10,000 mmu cells PO DAILY cholecalciferol (vitamin D3) [Vitamin D3] 1,000 UNIT tablet 1,000 iu PO BID Qty: 0 spironolactone 25 mg tablet 25 mg PO BID Qty: 180 3RF nystatin 100,000 unit/mL suspension 1 ml PO DAILY Qty: 60 0RF Rx Instructions: swish and swallow progesterone micronized [Prometrium] 100 mg capsule 100 mg PO BEDTIME Qty: 30 12RF biotin 1 mg capsule 5,000 mg PO DAILY vitamin B complex [B Complex-Vitamin B12] Tablet 1 tab PO DAILY venlafaxine 75 mg capsule,extended release 24hr 75 mg PO TID Qty: 270 3RF ascorbic acid (vitamin C) [Vitamin C] 500 mg Tablet,Chewable 500 mg PO DAILY calcium carbonate [Calcium 500] 500 mg calcium (1,250 mg) Tablet,Chewable 1,000 mg PO DAILY magnesium citrate 100 mg Tablet 300 mg PO DAILY Visit Report Forms: Patient Portal/API <Zachary [place], DO - Last Filed: 03/27/22 13:15> Cosign ED Attending Coskobeature Attestation: I was immediately available in the department for consultation. Documentation has been reviewed. I agree with assessment and plan.
[2022-03-25 17:05] LABS: Add Manual Diff / Slide Review NO; Basophils Absolute Auto 0 /uL (0-100); Basophils Percent Auto 0.6 % (0-2); Eosinophils Absolute Auto 100 /uL (0-450); Eosinophils Percent Auto 1.6 % (2-4); Hematocrit 39.6 % (36-46); Hemoglobin 13.4 g/dL (12.0-16.0); Lymphocytes Absolute Auto 1500 /uL (1100-4500); Lymphocytes Percent Auto 27.6 % (25-40); Mean Corpuscular HGB Conc 33.9 % (30-36); Mean Corpuscular Hemoglobin 30.5 PG (26-34); Monocytes Absolute Auto 300 /uL (0-900); Monocytes Percent Auto 6.1 % (3-14); Neutrophils Absolute Auto 3500 /uL (1500-7000); Neutrophils Percent Auto 64.1 % (50-75); Platelet Count 293 X10^3/uL (150-400); Red Blood Cell Count 4.39 X10^6/uL (4.0-5.2); Red Cell Distribution Width 14.1 % (11.6-14.8); White Blood Cell Count 5.4 X10^3/uL (4.5-11.0)
[2022-03-25 17:18] LABS: Alanine Aminotransferase 19 IU/L (<35); Albumin 4.4 g/dL (3.5-5.0); Albumin Globulin Ratio 1.2 (1.0-2.8); Alkaline Phosphatase 85 U/L (38-126); Aspartate Aminotransferase 25 IU/L (14-36); BUN Creatinine Ratio 11.1 (6-22); Bilirubin Total 0.4 mg/dL (0.2-1.3); Blood Urea Nitrogen 11 mg/dL (7-17); Calcium 9.3 mg/dL (8.4-10.2); Carbon Dioxide 26 mmol/L (22-32); Chloride 108 mmol/L (98-107); Estimated Glomerular Filt Rate > 60 mL/min (>60); Globulin 3.7 g/dL (1.7-4.1); Glucose 96 mg/dL (70-100); HEMOLYSIS < 15 (0-50); Potassium 4.4 mmol/L (3.4-5.1); Sodium 141 mmol/L (137-145); Total Protein 8.1 g/dL (6.3-8.2)
[2022-03-25 17:29] LABS: Amorphous Sediment Urine 1+; Bacteria Urine None Seen; Culture Indicated Urine Cult Not Indicated; Mucus Urine 2+ (Negative); RBC Urine 1-5/HPF (0-5/HPF); Squamous Epithelial Cell Urine 1-5 /HPF (0-5/HPF); WBC Urine 0-1/HPF (0-5/HPF)
[2022-03-25 18:12] VITALS: PULSE 75; RESP 20; O2SAT 99
== END 2022-03-25 18:14 | disposition home or self-care (01) ==
PROVIDERS: Emergency Provider Physician Assistant
DX: R09.89 Other specified symptoms and signs involving the circulatory and respiratory systems (principal)
CPT/HCPCS: 71045; 80053; 81003; 81015; 85025; 87070; 87086; 99282; 99283

== ENCOUNTER → 2023-03-29 14:14 | Outpatient (CLI) | payer BC, SELFPAY ==
--- NOTE | 2023-03-29 | DI.MG.S_ITS ---
BILATERAL DIGITAL SCREENING MAMMOGRAM 3D/2D WITH CAD WITH AUGMENTATION: 03/29/2023 CLINICAL: Routine screening. Comparison is made to exams dated: 03/12/2022 mammogram, 02/23/2021 mammogram, and 02/11/2020 mammogram - [facility]. Both breasts are heterogeneously dense, which may obscure small masses (category c / 51-75% glandular tissue). Current study was also evaluated with a Computer Aided Detection (CAD) system. Bilateral breast implants are intact. There are benign calcifications in both breasts. No significant masses, calcifications, or other findings are seen in either breast. There has been no significant interval change. IMPRESSION: BENIGN There is no mammographic evidence of malignancy. A 1 year screening mammogram is recommended. Based on the Tyrer Cuzick model (a risk assessment model) the patient's lifetime risk is 11.2% and her 10 year risk is 3.0%. According to the ACR, ACS, and NCCN guidelines, an annual breast MRI exam along with mammogram is recommended if the patient's lifetime risk is 20% or greater. This exam was interpreted at Station ID: [id number]. NOTE: For mammograms, a report in lay terms will be sent to the patient. Approximately 15% of breast malignancies will not be visualized mammographically. In the management of a palpable breast mass, a negative mammogram must not discourage biopsy of a clinically suspicious lesion. Electronically Signed By: Girish cesar/elodia:03/29/2023 16:07:29 letter sent: Normal Exam ACR BI-RADS Category 2: Benign Finding(s) 3342F
== END ==
PROVIDERS: PCP Obstetrics & Gynecology; Referring Provider Obstetrics & Gynecology; Visit Provider Obstetrics & Gynecology
DX: Z12.31 Encounter for screening mammogram for malignant neoplasm of breast (principal)
CPT/HCPCS: 77063; 77067

== ENCOUNTER → 2023-12-25 17:21 | Outpatient (CLI) | payer BC, SELFPAY ==
--- NOTE | 2023-12-25 | DI.MRI.S_ITS ---
PROCEDURE: MR LUMBAR SPINE WO CON INDICATIONS: Intervertebral disc disorders with radiculopathy, lumbar reg TECHNIQUE: Noncontrast sagittal T1 spin echo and T2 fast echo, sagittal STIR, and T2 fast spin echo through the lumbar spine. In cases with scoliosis, additional coronal T2 fast spin echo may be performed. COMPAR[facility], MR LUMBAR SPINE WITHOUT CONTRAST, 08/26/2019, 14:01. CR, XR LUMBAR SPINE 2-3V, 03/09/2020, 15:24. FINDINGS: Image quality: Excellent. Alignment and Curvature: There is trace retrolisthesis of L2 on L3, L3 on L4, trace anterolisthesis of L4 on L5. Bone Marrow: Marrow is of normal overall signal. [id number]-[id number] reactive endplate changes are present at L3-4. Schmorl's node is noted along the inferior endplate of L3 unchanged. No acute vertebral body compression fractures. Spinal Cord: Conus medullaris terminates at the L1 level. Visualized cord demonstrates normal signal and size. Paraspinous Soft Tissues: No paravertebral masses. Discs: Multilevel [id number] disc desiccation most severe at L3-4, T12-L1: No disc bulge, spinal stenosis or foraminal narrowing. L1-L2: Minimal disc bulge without spinal stenosis. Minimal foraminal narrowing with mild facet and ligamentum flavum hypertrophy. No interval progression. L2-L3: Mild disc bulge with mild spinal stenosis. [id number]-[id number] bilateral foraminal narrowing, left greater than right with facet and ligamentum flavum hypertrophy. No interval change. L3-L4: Mild disc bulge with mild spinal stenosis. Minimal to mild bilateral foraminal narrowing with facet and ligamentum flavum hypertrophy, minimally progressive. L4-L5: Mild disc bulge with moderate to severe spinal stenosis. Previous left lateral protrusion is not as well visualized on current exam. Anterior right facet joint cyst is present measuring 6 mm without nerve root compromise. It is in direct approximation to the right lateral aspect of the spinal canal. It was not well seen on prior exam. In addition, facet joint cysts are also noted on the left, in a posterior and lateral aspect projecting towards the paraspinous soft tissues. Facet and ligamentum flavum hypertrophy are present. L5-S1: Minimal disc bulge without spinal stenosis or foraminal narrowing. IMPRESSION: Multilevel degenerative changes relatively stable compared to prior exam. Facet joint cyst appears prominent L4-5 in direct approximation to the right lateral aspect of the spinal canal. There is no apparent nerve root impingement. Multilevel foraminal narrowing most prominent L2-3 secondary to facet/ligamentum flavum arthropathy. Dictated by: Domenica Lomax M.D. on 12/26/2023 at 10:34 Approved by: Domenica Lomax M.D. on 12/26/2023 at 10:54
== END ==
PROVIDERS: Referring Provider Orthopaedic Surgery Orthopaedic Surgery of the Spine; Visit Provider Orthopaedic Surgery Orthopaedic Surgery of the Spine
DX: M51.16 Intervertebral disc disorders with radiculopathy, lumbar region (principal); M47.26 Other spondylosis with radiculopathy, lumbar region; M53.86 Other specified dorsopathies, lumbar region; M48.061 Spinal stenosis, lumbar region without neurogenic claudication
CPT/HCPCS: 72148

== ENCOUNTER → 2024-02-13 09:56 | Outpatient (CLI) | payer BC, SELFPAY ==
--- NOTE | 2024-02-13 10:37 | EKG_ITS ---
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
[2024-02-13 10:59] LABS: Add Manual Diff / Slide Review NO; Basophils Absolute Auto 0 /uL (0-100); Basophils Percent Auto 0.7 % (0-2); Eosinophils Absolute Auto 100 /uL (0-450); Eosinophils Percent Auto 1.9 % (2-4); Hematocrit 37.3 % (36-46); Hemoglobin 12.6 g/dL (12.0-16.0); Lymphocytes Absolute Auto 1100 /uL (1100-4500); Mean Corpuscular HGB Conc 33.8 % (30-36); Mean Corpuscular Hemoglobin 31.4 PG (26-34); Mean Corpuscular Volume 92.7 fL (80-100); Monocytes Absolute Auto 300 /uL (0-900); Monocytes Percent Auto 6.4 % (3-14); Neutrophils Absolute Auto 3800 /uL (1500-7000); Platelet Count 333 X10^3/uL (150-400); Red Blood Cell Count 4.02 X10^6/uL (4.0-5.2); White Blood Cell Count 5.3 X10^3/uL (4.5-11.0)
[2024-02-13 11:31] LABS: BUN Creatinine Ratio 13.1 (6-22); Blood Urea Nitrogen 13 mg/dL (7-17); Calcium 9.4 mg/dL (8.4-10.2); Carbon Dioxide 22 mmol/L (22-32); Chloride 111 mmol/L (98-107); Estimated Glomerular Filt Rate > 60 mL/min (>60); Glucose 100 mg/dL (70-100); HEMOLYSIS < 15 (0-50); Potassium 4.7 mmol/L (3.4-5.1); Sodium 142 mmol/L (137-145)
== END ==
LOC: RESP 09:57
PROVIDERS: Referring Provider Orthopaedic Surgery Orthopaedic Surgery of the Spine; Visit Provider Orthopaedic Surgery Orthopaedic Surgery of the Spine
DX: Z01.812 Encounter for preprocedural laboratory examination (principal); M54.00 Panniculitis affecting regions of neck and back, site unspecified
CPT/HCPCS: 36415; 80048; 85025; 93005

== ENCOUNTER 2024-02-24 08:29 | Day surgery (SDC) | payer BC, SELFPAY ==
[2024-02-17 09:50] VITALS: BMI 27.1
[2024-02-24] VITALS (18 sets, daily range): BP systolic 96–136; BP diastolic 41–89; PULSE 76–98; RESP 10–18; TEMP 36.1–37.3; O2SAT 92–100; BMI 26.1
[2024-02-24] MEDS: ACETAMINOPHEN 325 MG TABLET 975 MG PO (09:06)
[2024-02-24] MEDS: LACTATED RINGERS 1,000 ML 42 ML IV ×2 (09:06→11:40)
[2024-02-24] MEDS: hydrOXYzine HCL 25 MG TABLET PO (09:07)
--- NOTE | 2024-02-24 09:22 | PM.PREOP ---
Pre-operative Note Interval Note History & Physical reviewed/Exam performed by Physician: Yes Changes to H&P: No
[2024-02-24] MEDS: CEFAZOLIN 2 GM/100 ML PREMIX 100 ML IV ×2 (09:58→17:59)
[2024-02-24] MEDS: BUPIVACAINE 0.25% (PF) 60 ML, EPINEPHrine 0.15 MG INJ (10:56)
[2024-02-24] MEDS: BUPIVACAINE LIPOSOME 266 MG/20 ML VIAL INJ (11:41)
--- NOTE | 2024-02-24 12:27 | PM.OP.1 ---
Operative Date/Time/Diagnoses Date of procedure: 02/24/24 Time of procedure: 10:00 Pre-op diagnosis: 1. L4-5 spondylolisthesis 2. L4-5 right facet cyst 3. L4-5 spinal stenosis with radiculopathy Post-op diagnosis: same Procedure & Clinicians Procedure: 1. L4-5 Postero-lateral and posterior interbody fusion 2. L4-5 interbody cage placement. 3. L4-5 decompressive laminectomy with bilateral facetecomies 4. L4-5 Posterior non-segmental instrumentation 5. [place] of bone marrow from iliac crest 6. Utilization of microsurgical technique and operating microscope Same procedure as scheduled: Yes Indications: Patient has been having chronic back pain and worsening lumbar radiculopathy. Patient has MRI showing L4-5 spondylolisthesis with right-sided epidural facet cyst causing nerve root impingement correlating with patient's symptoms. Patient failed multiple conservative management with worsening pain weakness and numbness in her lower extremity. Patient has been having difficulty performing activity of daily living. After discussing risks benefits of treatment options, patient elected proceed with surgery. Surgeon: Lu Otoole Milk Drying Machine Operator: Emelyn Frost Click Yes if Unassisted: No Anesthesia Type: General Operative Notes Closure Type: primary Specimen(s): none sent Prosthetic devices, grafts, tissues, transplants, or devices: Globus revolve screws, Rise cage Estimated Blood Loss (mL): 50 Blood products transfused: none Procedure in detail: Patient was seen in the preoperative area. Risks and benefits of the surgery was discussed with the patient. Informed consent was obtained from the patient and placed in the chart. Surgical site was marked. Patient was taken to the operative room. General anesthesia was administered. Prophylactic antibiotic was given to the patient less than 30 min before the incision was made. Patient was placed into a prone position on the [place] table. Patient's back was then prepped and draped in the sterile fashion. Time-out was performed at this time. Using AP and lateral C-arm imaging the interval between L4-5 was identified and marked on patient's back. A 2 inch incision 2 in from midline was made on the right side first. The fascia was incised in line with skin incision. Globus MARS retractors was placed inside the incision and docked onto the L4 lamina. Using microsurgical technique and operating microscope, a L4 laminectomy and L4-5 facetectomy was performed using a [place] rongeur. The laminectomy and facetectomy was performed in order to decompress patient's cauda equina as well as the nerve roots exiting at the L4-5 level. The disc space at L4-5 was identified. And a total diskectomy was performed at L4-5 level. The endplates were decorticated using a rasp and shaver. The total diskectomy and decortication was performed at L4-5 level in order to to accomplish a L4-5 fusion. The local bone from the laminectomy and facetectomy was saved for local bone grafting. After the total diskectomy and decortication was completed, Viacel bone graft material was combined with local bone that was harvested earlier. At this time, a separate skin is incision was made over the iliac crest. A Jamshidi needle was inserted into the iliac crest through a separate skin incision. 5 cc of bone marrow aspiration was obtained through the separate skin incision using a Jamshidi needle from the iliac crest. The bone marrow aspiration was combined with local bone and the Viacel bone grafting material. The bone grafting material was placed into the L4-5 interbody space along with a expandable cage. The cage was expanded to its maximum height using the torque limiting screwdriver. At this time a mirror image incision was made on the left side. The fascia was incised in line with the skin incision. Globus MARS retractor was inserted and docked onto the L4-5 posterolateral gutter. Using the power drill, posterior-lateral decortication was performed at L4-5 level until bleeding cortical bone was identified. The remaining bone grafting material was placed into the L4-5 posterior lateral gutter he order to accomplish posterolateral fusion at the L4-5 level. Using the double C-arm technique, pedicle screws were placed into the L4-5 pedicles bilaterally. This was done by placing the Jamshidi needle into the pedicles, then placing the guidewires over the Jamshidi needle, and finally placing the cannulated screws over the guidewires bilaterally. After the pedicle screws were placed, 2 titanium rods was locked into the heads of the pedicle screws using locking caps and torque limiting screwdriver. During the insertion of the right L5 pedicle screw, using the guidewire to guide the L5 cannulated screw placement was performed same as the other 3 screws. During the retrieval of the guidewire after the screw was partially inserted, a 1 cm piece of the tip of the wire was broken inside the patient's vertebrae at L5 level. Multiple images were taken to confirm the position and orientation of the wire. Determination was made that the wire is in the safe position. And the attempted retrieval of the broken tip of the wire will be very technically challenging and high risk. Decision was made to leave the tip of the wire where it is inside the L5 vertebrae. After all the hardware was placed, and confirmed with AP and lateral C-arm imaging, the wound was then irrigated with sterile normal saline and packed with Ray-Aries gauze for 3 min to accomplish hemostasis. After the gauze was removed the deep fascia was closed with #1 Vicryl suture. The subcutaneous layer was closed with 2-0 Vicryl. The skin was closed with skin frances. Patient tolerated the procedure well. There were no complications. The Operation could not have been safely performed without compromising the technical result or length of the procedure, without the assistance of a skilled surgical dental assistant. The surgical dental assistant was medically necessary for proper positioning, retraction and manipulation of instruments, proper exposure, surgical preparation, and manipulation of tissue. Neuro monitoring was utilized throughout the entire case. Patient's monitor signals were stable throughout entire procedure without disturbance. Patient's family was notified of the broken tip of the guidewire and the reason for leaving it inside patient's vertebrae. Patient's showed understanding of the discussed information and agrees with the plan of care. Complications: none Post-operative Condition: stable Disposition: PACU Plan for aftercare: Admit to inpatient hospital
--- NOTE | 2024-02-24 12:36 | DI.RAD.S_ITS ---
PROCEDURE: XR LUMBAR SPINE 2-3V INDICATIONS: L4-5 TLIF TECHNIQUE: 2 views of the lumbar spine were acquired. [facility], 01/28/2015, 10:54. FINDINGS: L4-L5 pedicle screw fixation with intervertebral body spacer projects in the expected location. IMPRESSION: Intraoperative guidance provided. Dictated by: Ant Clark M.D. on 02/24/2024 at 15:08 Approved by: Ant Clark M.D. on 02/24/2024 at 15:09
[2024-02-24] MEDS: hydrOXYzine 50 MG/ML INJ 25 MG IM (13:00)
[2024-02-24] MEDS: fentaNYL 100 MCG/2 ML INJ 85 MCG IV (13:00)
[2024-02-24] MEDS: TRAMADOL 50 MG TABLET 100 MG PO (13:36)
[2024-02-24] MEDS: HYDROMORPHONE 1 MG INJ IV ×5 (13:53→22:24)
[2024-02-24] MEDS: LACTATED RINGERS 1,000 ML 125 ML IV ×2 (15:11→19:35)
[2024-02-24] MEDS: TOPIRAMATE 25 MG TABLET 75 MG PO (22:23)
[2024-02-24] MEDS: SENNOSIDES 8.6 MG TABLET 17.2 MG PO (22:24)
[2024-02-24] MEDS: DOCUSATE 100 MG CAPSULE PO (22:24)
[2024-02-25 01:00] VITALS: BP 91/51; PULSE 83; RESP 18; TEMP 33.8; O2SAT 98
[2024-02-25] MEDS: CEFAZOLIN 2 GM/100 ML PREMIX 100 ML IV (02:05)
[2024-02-25] MEDS: HYDROMORPHONE 2 MG INJ IV (02:50)
[2024-02-25 06:49] LABS: Hematocrit 32.2 % (36-46); Hemoglobin 10.8 g/dL (12.0-16.0)
--- NOTE | 2024-02-25 07:48 | PM.DS.1 ---
History of Present Illness History of Present Illness Date Patient Seen: 02/25/24 Time Patient Seen: 07:48 Chief complaint: Back pain Narrative: Back pain is moderate. Denies fever or chills. No nausea or vomiting. Patient has been out of bed several times. She has not yet worked with physical therapy. Patient has assistance at home. Discharge Providers Provider Discharge Date: 02/25/24 Consults: 02/24/24 14:46 Consult to Occupational Therapy Evaluate & Treat Comment: Physician Instructions: Evaluate and treat Consult to Physical Therapy Evaluate & Treat Comment: Physician Instructions: Evaluate and Treat Discharge provider: Aleksandar Magana PA-C Summary Hospital Course Discharge Diagnosis: 1. L4-5 spondylolisthesis 2. L4-5 right facet cyst 3. L4-5 spinal stenosis with radiculopathy Hospital Course: 1. L4-5 Postero-lateral and posterior interbody fusion 2. L4-5 interbody cage placement. 3. L4-5 decompressive laminectomy with bilateral facetecomies 4. L4-5 Posterior non-segmental instrumentation 5. [place] of bone marrow from iliac crest 6. Utilization of microsurgical technique and operating microscope Same procedure as scheduled: Yes Indications: Patient has been having chronic back pain and worsening lumbar radiculopathy. Patient has MRI showing L4-5 spondylolisthesis with right-sided epidural facet cyst causing nerve root impingement correlating with patient's symptoms. Patient failed multiple conservative management with worsening pain weakness and numbness in her lower extremity. Patient has been having difficulty performing activity of daily living. After discussing risks benefits of treatment options, patient elected proceed with surgery. Surgeon: Lu Otoole Safety Compliance Specialist: Emelyn Frost Click Yes if Unassisted: No Anesthesia Type: General Operative Notes Closure Type: primary Specimen(s): none sent Prosthetic devices, grafts, tissues, transplants, or devices: Globus revolve screws, Rise cage Estimated Blood Loss (mL): 50 Blood products transfused: none Patient's family was notified of the broken tip of the guidewire and the reason for leaving it inside patient's vertebrae. Patient's showed understanding of the discussed information and agrees with the plan of care. Patient was admitted to the above-mentioned procedure. Patient consented to the same. Patient underwent L4-L5 fusion February 24, 2024. Patient back in her room recovering well as in stable condition. Patient has already been prescribed postop pain meds. She will be on multimodal pain management. Limit bending, twisting, lifting. Patient will mobilize with physical therapy this morning. Patient will be discharged home after physical therapy if safe for home environment. Status at Discharge Cognitive/behavioral status at discharge: at baseline, oriented Functional status at discharge: uses cane/walker Overall status at discharge: patient is progressing back to baseline Exam Vital Signs (past 8 hours): - 02/25/24 01:00 Temperature 93 F L Pulse Rate 83 Respiratory Rate 18 Blood Pressure 91/51 L Pulse Oximetry 98 Oxygen Flow Rate 0 Oxygen Delivery Method Nasal Cannula Oxygen Flow Rate 0 Narrative Exam Narrative: 53-year-old female resting comfortably in bed in no apparent distress. Dressing is clean, dry and intact. Motor functions intact to bilateral lower extremities. Const General: cooperative and comfortable Nutritional Appearance: average body habitus Objective Labs 02/25/24 06:29 Labs: Laboratory Results - last 24 hr 02/25/24 06:29 Hgb 10.8 L Hct 32.2 L PFSH Medical History History of breast implant removal (10/2023) Gestational diabetes Elevated BP without diagnosis of hypertension Menopausal symptom Acne Anxiety and depression Surgical History S/P foot surgery, left (07/21/21) History of shoulder surgery History of lumbar discectomy (03/09/20) History of foot surgery (2010) Hx of cholecystectomy History of carpal tunnel repair Status post breast augmentation Family History Father Age: 77 Non Hodgkin's lymphoma Heart attack Cancer Mother Age: 76 Stroke Type 2 diabetes mellitus Social History household members: spouse and children Smoking Status: Never smoker alcohol intake: current Discharge Assessment & Plan Assessment and Plan Assessment: Progressing as expected Plan of Treatment: Multimodal pain management Mobilize with physical therapy, limit bending, twisting, lifting Discharge home today after physical therapy if safe for home environment Discharge Plan Discharge Plan Patient Disposition: Home Provider Discharge Comment: Post-op pain meds sent from office. Discharge orders & Medications Discharge Orders: Discharge (Order); Ordered 02/25/24 Ordered By: Aleksandar Magana Prescriptions: New docusate sodium 100 mg Capsule 100 mg PO BID Qty: 14 0RF Continued cholecalciferol (vitamin D3) [Vitamin D3] 1,000 UNIT tablet 1,000 iu PO DAILY Qty: 0 prasterone (dhea) [DHEA] 25 mg Tablet 25 mg PO DAILY topiramate 25 mg Tablet 75 mg PO BID venlafaxine 75 mg capsule,extended release 24hr 150 mg PO QAM spironolactone 25 mg tablet 25 mg PO QAM niacinamide 500 mg Tablet 500 mg PO DAILY Follow up/Referrals: Lu Otoole MD [Physician] - 03/10/24 1:00 pm (Follow up w/ Gómez Herrera PA-C, at [facility] office in [place].) Diet/Activity/Treatments Diet: Diet as Tolerated Activity: No deep bending or twisting at the waist. No lifting more than 10 pounds. Catheter comment: Heating pad to low back as needed for pain. Skin/Wound/Dressing Care Report to your healthcare provider any signs of infection, such as:: chills, fever, night sweats, unusual drainage and unusual redness Dressing: May shower. Keep dressing as dry as possible. If dressing becomes wet or dirty, may remove and replace with clean, dry gauze. No bathing or otherwise soaking incisions. Do not apply any creams, lotions, or ointments to incisions. Visit Report/Discharge Packet Instructions: DI for Prescription Opioid Use, DI for Transforaminal Lumbar Interbody Fusion Stand Alone Forms: Patient Portal/API, Surgery Discharge Discharge Data Attending Provider: Lu Otoole Quality VTE Deep Vein Thrombosis/Pulmonary Embolism Present on Admission: No
[2024-02-25 08:00] VITALS: BP 101/61; PULSE 85; RESP 16; TEMP 36.3; O2SAT 95
[2024-02-25] MEDS: TRAMADOL 50 MG TABLET PO (08:31)
[2024-02-25] MEDS: HYDROMORPHONE 1 MG INJ IV (10:11)
--- NOTE | 2024-02-25 10:11 | OT.IP.EVAL ---
Current Diagnoses Spondylolisthesis, lumbar region (02/24/24) Spinal stenosis, lumbar region with neurogenic claudication (02/24/24) Other specified postprocedural states (02/24/24) Surgery Performed Operation Date: 02/24/24 09:45 Actual Procedures p L4-5 TLIF - Lu Otoole MD Past Medical History (Last Reviewed 02/25/24 @ 07:51 by Aleksandar Magana PA-C) Acne Anxiety and depression Elevated BP without diagnosis of hypertension Gestational diabetes History of breast implant removal (10/2023) Menopausal symptom Surgical History (Last Reviewed 02/25/24 @ 07:51 by Aleksandar Magana PA-C) History of carpal tunnel repair History of foot surgery (2010) History of lumbar discectomy (03/09/20) History of shoulder surgery Hx of cholecystectomy S/P foot surgery, left (07/21/21) Status post breast augmentation Occupational Therapy Inpatient Evaluation/Re-Eval M1 PT/OT-IP Prior Functional Status Start: 02/25/24 10:46 Freq: NEEDED Status: Active Protocol: Document 02/25/24 10:46 [facility] (Rec: 02/25/24 10:55 [facility] [id number]) Medical Review Prior Functional Status Communication I Mobility and Gait I with no device but had pain. Activities of Daily Living and IADL's I with all needs but had pain. Social History Household Members spouse,children Living Arrangements House Number of Floors (Floors) One Floor Number of Stairs To Enter/Railing? 2-3 steps with no rails. Home Environment High Toilet,Walk in Shower Home Equipment Front Wheel Walker,Straight Cane,Manager [place],Grab Bars In Shower M2 OT-IP Current Condition Start: 02/25/24 10:46 Freq: Status: Active Protocol: Document 02/25/24 10:46 [facility] (Rec: 02/25/24 10:55 [facility] [id number]) Occupational Therapy Current Condition Current Condition Evaluation Date 02/25/24 Treatment Diagnosis S/P L4-5 TLIF Diagnosis Onset Date 02/25/24 Post Operative Precautions Lumbar Precautions Log Roll,No Twisting,Limit Bending,Lifting Restriction of 10 lbs,Gait Belt above Incisional Area M3 OT- IP Subjective and Pain Start: 02/25/24 10:46 Freq: Status: Active Protocol: Document 02/25/24 10:46 [facility] (Rec: 02/25/24 10:55 [facility] [id number]) OT- Subjective Occupational Therapy Visit Type Type Initial Evaluation Visit Start Time 10:11 Visit Stop Time 10:44 Occupational Therapy Visit Comments Patient Comments Pt agreed to get up and get dressed. Patient/Caregiver Goals To go home. OT Pain Assessment Pain When Pain Assessed At Rest Pain Present Pain Present Pain Reported Location back Intensity 5 Scale Used Numeric (0 - 10) M4 OT- IP ADL's Start: 02/25/24 10:46 Freq: Status: Active Protocol: Document 02/25/24 10:46 [facility] (Rec: 02/25/24 10:55 [facility] [id number]) OT [id number] General Evaluation Self-Feeding Ability Independent OT ADL-Grooming General Evaluation Grooming Ability Independent OT ADL-Oral Care General Eval Oral Care Ability Independent OT ADL-Dressing General Eval Upper Body Dressing Ability Independent Lower Body Dressing Ability Standby Assistance Comments OT Dressing Comments vc to sit for dressing needs. Pt states will not wear socks and be barefooted at home. Pt not wanting to put on socks in the hospital. OT ADL-Toileting General Evaluation Toileting Ability Independent Comments OT Toileting Comments VC to stand and wipe to best follow her back precautions and use of wipes. OT ADL-Bathing Comments OT Bathing Comments Educated to for dressing needs while showering and to have assist and possibly a shower chair. Pt has a grab bar in the shower. M5 OT- IP IADL's Start: 02/25/24 10:46 Freq: Status: Active Protocol: Document 02/25/24 10:46 [facility] (Rec: 02/25/24 10:55 [facility] [id number]) OT-Instrumental Activities of Daily Living Deficits IADL Deficits Identified Deficits Home Safety Awareness Awareness of Need for Assistance at Home Good Awareness Ability to Problem Solve Emergency Able to Problem Solve Situations Home Safety Comments Pt's family to assist with her needs at home. M6 OT- IP Functional Cognition Start: 02/25/24 10:46 Freq: Status: Active Protocol: Document 02/25/24 10:46 [facility] (Rec: 02/25/24 10:55 [facility] [id number]) Cognitive Factors Limiting Selfcare Function Cognitive Ability Level of Alertness Alert Patient Orientation Name,Age,Birthday,Month,Date, Year,Day of Week,Place, Situation Attention Span Ability Capable of Focused Attention, Capable of Sustained Attention Ability to Follow Commands Able to Follow One Step Commands Safety Awareness Decreased Ability to Apply Precautions Cognitive Comments Cognitive Assessment Comments Pt needing cues to slow down and for education of log rolling. Pt tends to want to long sit up and then get out of bed , stopped to make sure to do log rolling at this time to best follow her back precautions. OT- Vision and Hearing OT- Hearing Assessment OT- Hearing Assessment WFL OT- Vision Assessment Visual Acuity Glasses All The Time M7 OT- IP Mobility and Balance Start: 02/25/24 10:46 Freq: Status: Active Protocol: Document 02/25/24 10:46 [facility] (Rec: 02/25/24 10:55 [facility] [id number]) OT- Bed Mobility Assessment Supine to Sit Supine to Sit Assist Standby Assistance Sit to Supine Sit to Supine Assist Standby Assistance OT-Transfer Assessment Sit to and From Stand Sit to and from Stand Standby Assistance Transfers Transfer Ability Standby Assistance Technique Transfer Destination Bed,Chair,Toilet Transfer Technique Stand Step Pivot Devices Transfer Assistive Devices None,Gait Belt Comments Mobility Comments VC to follow her back precautions otherwise distant SBA to independent in the room at this time without a device . Spoke of car transfers. BP supine 96/48, sitting 98/60. OT- Balance Assessment Sitting Balance and Reactions Static Sitting Balance Ability Normal Dynamic Sitting Balance Ability Normal Standing Balance and Reactions Static Standing Balance Ability Normal Dynamic Standing Balance Ability Good M8 OT- IP Objective Assessments Start: 02/25/24 10:46 Freq: Status: Active Protocol: Document 02/25/24 10:46 [facility] (Rec: 02/25/24 10:55 [facility] [id number]) OT Gross Range of Motion Upper Extremity Range of Motion Assessment Within Functional Limits OT Strength Comments Strength Comments WFl for needs. M9 OT- IP Assessment and Plan Start: 02/25/24 10:46 Freq: Status: Active Protocol: Document 02/25/24 10:46 [facility] (Rec: 02/25/24 10:55 [facility] [id number]) OT Summary Assessment and Plan Potential Rehabilitation Potential Excellent Analytic Complexity at Evaluation Low Summary OT Impairments Pain,Balance,Functional Mobility,Bathing,Shower Transfers Progress Towards Goals Safe For Discharge Assessment Summary Pt low complexity and doing well, just needing to remember to log roll, slow down and ask for assist as needed. Pt to go home with her family to assist. Frequency of Treatment Frequency Of Treatment Discharge Discharge Recommendations OT Discharge Recommendations Home with Assistance Home Equipment Needs shower chair? Transportation Needs at Discharge Private Vehicle
--- NOTE | 2024-02-25 11:25 | PT.IIE ---
Current Diagnoses Spondylolisthesis, lumbar region (02/24/24) Spinal stenosis, lumbar region with neurogenic claudication (02/24/24) Other specified postprocedural states (02/24/24) Surgery Performed Operation Date: 02/24/24 09:45 Actual Procedures p L4-5 TLIF - Lu Otoole MD Surgical History (Last Reviewed 02/25/24 @ 07:51 by Aleksandar Magana PA-C) History of carpal tunnel repair History of foot surgery (2010) History of lumbar discectomy (03/09/20) History of shoulder surgery Hx of cholecystectomy S/P foot surgery, left (07/21/21) Status post breast augmentation Medical History (Last Reviewed 02/25/24 @ 07:51 by Aleksandar Magana PA-C) Acne Anxiety and depression Elevated BP without diagnosis of hypertension Gestational diabetes History of breast implant removal (10/2023) Menopausal symptom Physical Therapy Inpatient Evaluation/Re-Eval M1 PT/OT-IP Prior Functional Status Start: 02/25/24 10:46 Freq: NEEDED Status: Discharge Protocol: Document 02/25/24 10:46 [facility] (Rec: 02/25/24 10:55 [facility] [id number]) Medical Review Prior Functional Status Communication I Mobility and Gait I with no device but had pain. Activities of Daily Living and IADL's I with all needs but had pain. Social History Household Members spouse,children Living Arrangements House Number of Floors (Floors) One Floor Number of Stairs To Enter/Railing? 2-3 steps with no rails. Home Environment High Toilet,Walk in Shower Home Equipment Front Wheel Walker,Straight Cane,Railroad Repairer,Grab Bars In Shower M1 PT/OT-IP Prior Functional Status Start: 02/25/24 12:50 Freq: NEEDED Status: Active Protocol: Document 02/25/24 11:25 AB (Rec: 02/25/24 13:04 AB [id number]) Medical Review Prior Functional Status Medical History Reviewed Yes Communication able to make needs known Mobility and Gait pt stated that she is independent with all mobilities and ambulation without AD Social History Household Members spouse,children Living Arrangements House Number of Floors (Floors) One Floor Number of Stairs To Enter/Railing? 2 steps without rails to enter Home Environment Standard Height Toilet,Walk in Shower,Built-In Shower Seat Home Equipment Front Wheel Walker,Straight Cane,Hand Held Shower,Grab Bars In Shower Employment Status Combo Welder Employed Additional Social History Comment pt works in a school district M2 PT-IP Current Condition Start: 02/25/24 12:50 Freq: NEEDED Status: Active Protocol: Document 02/25/24 11:25 AB (Rec: 02/25/24 13:04 AB [id number]) Physical Therapy Current Condition Current Condition Evaluation Date 02/25/24 Treatment Diagnosis s/p L4-5 TLIF; difficulty in walking Onset Date 02/24/24 M3 PT-IP Subjective Start: 02/25/24 12:50 Freq: NEEDED Status: Active Protocol: Document 02/25/24 11:25 AB (Rec: 02/25/24 13:04 AB [id number]) Subjective Physical Therapy Visit Type Type Initial Evaluation Visit Start Time 11:25 Visit Stop Time 11:50 Number of NITROCELLULOSE OPERATOR Visits 0 Physical Therapy Visit Comments Patient Comments agreeable to do PT Therapy Pain Assessment Pain When Pain Assessed At Rest Pain Present Pain Present Pain Reported Location back Intensity 4 Scale Used Numeric (0 - 10) Pain Management Techniques Distraction,Modification of Treatment,Re-positioning, Timing of Activity with Medications M4 PT-IP Mobility and Gait Start: 02/25/24 12:50 Freq: NEEDED Status: Active Protocol: Document 02/25/24 11:25 AB (Rec: 02/25/24 13:04 AB [id number]) PT-Bed Mobility Assessment Rolling Type of Rolling Log Rolling Level of Assist Standby Assistance Supine to Sit Supine to Sit Standby Assistance Sit to Supine Sit to Supine Standby Assistance PT-Transfer Assessment Sit to and From Stand Sit to and from Stand Standby Assistance Equipment Transfer Assistive Device Gait Belt Orthotic/Prosthetic Devices or Brace: No Transfers Transfer Destination Bed,Chair Transfer Technique ambulated Transfer Ability Level of Assist Standby Assistance Comments Mobility Comments pt sitting on the chair and agreeable to do PT. pt's MIL in room. reviewed back precautions and pt able to recall. obtained PLOF and home set up from pt. pt completed sit to stand SBA. pt tends to pull on FWW to get up. instructed pt to sit back on chair and pt does not reach for the chair. educated pt regarding sit<>stand techniques. pt completed sit < >stand from EOB x 4 and cues for techniques. pt with difficulty pushing BLE to stand and c/o increase back pain. instructed to push with one hand from chair and other hand can push from FWW. completed SBA with steadier transfer to standing. stated that she does not need a FWW to walk. pt ambulated in room ~ 30 ft SBA without AD. no LOB . pt sat on EOB. completed bed mobility sit<>supine SBA. pt agreed to do stairs. ambulated towards platform step without AD ~ 30 ft and pt completed up/down platform step using SPC CGA with first attempt and SBA on 2nd attempt . pt ambulated back to her room SBA. sat on the chair. pt without further concerns. Gait Assessment Gait Gait Assistance Required: Standby Assistance Distance (Feet) 30 Able to Maintain Weight Bearing Status Yes During Gait Assistive Devices Assistive Device None,Gait Belt Orthotic/Prosthetic Devices or Brace: No Factors Limiting Gait Function Factors Limiting Gait Function Pain Stair Climbing Assessment Evaluation Level of Assist On Stairs Standby Assistance,Contact Guard Assistance,1 Person Assistance Devices Stair Climbing Assistive Devices Straight Cane Technique/Endurance Stair Climbing Direction Ascend and Descend Stair Climbing Technique Step to Step Number of Steps Climbed 1 Query Text: Stair Climbing Set # Repetitions (reps) 2 PT-Balance Assessment Sitting Balance and Reactions Static Sitting Balance Ability Normal Dynamic Sitting Balance Ability Normal Standing Balance and Reactions Static Standing Balance Ability Good Dynamic Standing Balance Ability Good Device Used without AD M5 PT-IP Objective Assessments Start: 02/25/24 12:50 Freq: NEEDED Status: Active Protocol: Document 02/25/24 11:25 AB (Rec: 02/25/24 13:04 [id number]) Orientation Orientation/Cognition Level of Alertness Alert Orientation Name,Place,Situation Language Function Ability No Deficits Noted Safety Awareness Understands Safety Issues Memory Description No Deficits Noted Gross Range of Motion Lower Extremity ROM Assessment Within Functional Limits Strength Lower Extremity Strength Assessment Within Functional Limits Sensation Assessment Sensation Gross Sensation WNL Muscle Tone Muscle Tone WNL Yes M6 PT-IP Treatment Start: 02/25/24 12:50 Freq: NEEDED Status: Active Protocol: Document 02/25/24 11:25 AB (Rec: 02/25/24 13:04 [id number]) Physical Therapy Treatment Education Education Provided Precautions,Weight Bearing Status,Post-Op Packet,Safety M7 PT-IP Assessment and Plan Start: 02/25/24 12:50 Freq: NEEDED Status: Active Protocol: Document 02/25/24 11:25 AB (Rec: 02/25/24 13:04 AB [id number]) PT Summary Assessment and Plan Potential Rehabilitation Potential Fair Status of Condition at Evaluation Stable Summary Impairments Pain,ROM,Strength,Balance, Coordination,Sensation,Tone, Cognition,Bed Mobility, Transfers,Gait,Activity Tolerance Assessment Summary pt is a 53 y/o F s/p L4-5 TLIF POD 1. pt has back precautions. pt requiring SBA with ambulation without AD and plans to go home with family to assist her if needed. pt may go home when medically stable. Goals Bed Mobility Goal Independent Transfer Goal Independent Gait Goal Independent Gait Distance 200 Other Goals up/down 2 steps using SPC mod I Days to Meet Goals 3 Frequency of Treatment Frequency Of Treatment Twice a Day Treatment Plan Physical Therapy Treatment Plan Bed Mobility Training,Transfer Training,Gait Training, Therapeutic Exercise,Balance Retraining,Post Op Education, Discharge Planning,Hot or Cold Pack,Neuromuscular Re-ed, Coordination Retraining,Manual Therapy Precautions Lumbar Precautions Log Roll,No Twisting,Limit Bending,Lifting Restriction of 10 lbs,Gait Belt above Incisional Area Recommendations To Nursing Amount of Assist Needed Standby Assistance Discharge Recommendations PT Discharge Recommendations Home with Assistance Transportation Needs at Discharge Private Vehicle
--- NOTE | 2024-02-25 12:09 | PC.NURSE ---
Patient is A&OX4, VSS, Afebrile. Her BP is slightly low, and recommended to hold her spironolactone medication. She states she would like to take all home medications at home today and declined them here. She is given prn tramadol 50mg po for pain 5-/10 to back this a.m. which she states in not effective, at home she would take 100 mg for higher level of pain. She is given one dose of PRN 1 mg dilauded as she has allergies to other pain medication and this has been effective for pain control. She tolerates working with PT/OT, pain well managed and is cleared for discharge this a.m. Dressing to back changed and she is educated about site care. [place] c/d/i, without swelling or redness. She verbalizes understanding of medications, activity, site care, s/sx of infection/complication and follow up appointment with MD Otoole's office in [facility] on 03/10 ayt 1300. She is escorted by SOLAR THERMAL TECHNICIAN via w/ch with all of her belongings including FWW to private vehicle with family member for discharge home today in private vehicle at noon.
--- NOTE | 2024-02-25 12:30 | CM.DANOTE ---
DCP Assessment note- Brief Pt is a 53yo F here following TLIF with Dr. Otoole on 02/24/24. Pt is POD1. 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 Per H&P, pt eager to dc home after one night, pt has good supports at home. Per OT note, rec home with assistance. Per chart review, pt normally indep/active at baseline, lives with spouse and children in [place]. P: home today with family support. No identified barriers to safe dc home identified at this time. CM team will follow as needed KEE [place] Discharge Planning/Care Management CM Discharge Assessment Start: 02/25/24 12:29 Freq: Status: Active Protocol: Document 02/25/24 12:29 SL (Rec: 02/25/24 12:30 [id number]) Discharge Planning Assessment Assigned Carton Making Machinist KEE Rodney DPOA/Assigned Designee Name Cruz Feliz Contact Information [phone] Advance Directives? No History Provided By Patient Prior Living Arrangements House Household Members spouse,children Independent with ADL's Yes Is patient alert and oriented? Yes Barriers to Discharge No Discharge Plan Home Referrals Initiated None needed Review Status In Process Please Provide Date Initial DC 02/25/24 Assessment Was Performed Next Review Type Continued Stay Review Pre-Anesthesia Assessment Start: 02/17/24 09:50 Freq: Status: Complete Protocol: Document 02/17/24 09:50 CAB (Rec: 02/17/24 10:16 CAB [id number]) Pre-Anesthesia Assessment Patient Information Reviewed Via Phone Assessment Assessment Completed With Patient Diagnostic Results BMP/CMP,CBC,EKG,Urinalysis Comment Labs/EKG @ 02/13/24 Primary Care Provider None Seen Specialist in Last 12 Months Yes Specialist Seen Orthopedist Primary Language Dominican Arabic Linguist Required No Height 177.8 cm Weight 85.729 kg Body Mass Index (BMI) 27.1 Hearing Ability Normal Visual Assist Glasses Dentition Type Teeth, Natural Present,Teeth, Missing Barriers to Learning None Hx Anesthesia Reactions No Hx Family Anesthesia Reaction No Hx Malignant Hyperthermia No Hx Blood Transfusions No Hx Blood Transfusion Reaction No Anesthesia Review Requested No Line Tender No alcohol intake current alcohol intake frequency a few times a month Smoking Status Never smoker Substance Use Type does not use Pain Present Pain Reported Musculoskeletal Symptoms Back Pain History of Falling (Recent or History of No ) Patient is completely paralyzed or No completely immobile Mental Status Oriented to own ability Is patient on oxygen? No Does patient have MARIA/SOB No Hx Sleep Apnea No CPAP/BIPAP use not prescribed Currently Taking a Beta Ashley No Can You Climb a Flight of Stairs Without Yes SOB Hx Chest Pain No Hx SOB No Hx Syncope or Dizziness No Anti-Coagulant Therapy No Has a Streetcar Motorman No Cardiac Testing No Hx Pacemaker/ICD No Pacemaker Rep Required? No Cardiac Clearance Received No Diet Type At Home Regular Dysphagia No Gastrointestinal Symptoms None Chronic UTI No Urinary Catheter Present No Hx Urinary Self Catheterization No Diabetes No Patient No Lactating No Presence of External or Internal Medical Yes: IUD, plate and screws in Devices R foot Received a COVID vaccine? Yes Marital Status Lives With spouse,children Current Living Arrangements House Number of Floors (Floors) One Floor Number of Stairs To Enter/Railing? 2 Support System Spouse Does the Patient Have Assistance After Yes Surgery Patient Discharge Plan Description Return Home Comment Pt advised overnight length of stay per surgeon Feels Safe in Current Environment No Been Physically Hurt or Threatened By a No Person in Current Environment Do you have thoughts of harming yourself None or others? Are you currently considering suicide? No Do you have a plan to hurt yourself or No Plan others? Do You Have Any Spiritual Beliefs That No May Affect Your HC Choices? Do You Have Any Cultural Practices That No May Affect Your HC Choices? Who Can We Speak to About Patient's Care Family, friends Identifying Code for Release of Patient Declines to issue Information Health Care Proxy/Next of Kin Cruz () Health Care Proxy Emergency Contact Name Cruz () Emergency Contact Advance Directives? No Power of Scientific Associate No PAC Instructions Durable medical equipment, Medications to take/avoid, Nasal antibiotic,No ETOH/ petroleum product on skin DOS, NPO,Post-op transportation,Pre -surgical wash,Sensory aids, Sturdy shoes/comfortable clothes,Do not bring valuables and remove jewelry
== END 2024-02-25 12:00 | disposition home or self-care (01) ==
LOC: OR 08:29 → AC 08:31
PROVIDERS: Referring Provider Orthopaedic Surgery Orthopaedic Surgery of the Spine; Visit Provider Orthopaedic Surgery Orthopaedic Surgery of the Spine
PROC: (CPT 22633; principal; 2024-02-24 09:45)
DX: M43.16 Spondylolisthesis, lumbar region (principal); M48.062 Spinal stenosis, lumbar region with neurogenic claudication; Z98.890 Other specified postprocedural states; M54.16 Radiculopathy, lumbar region; G96.191 Perineural cyst
CPT/HCPCS: 22633; 20939; 63052; 22853; 22840; 36415; 72100; 76000; 85014; 85018; 97116; 97161; 97165; 97535; A9270; C1713; C9290; J0171; J0330; J0690; J1100; J1170; J2405; J2704; J3010; J3410

== ENCOUNTER → 2024-04-01 11:15 | Outpatient (CLI) | payer BC, SELFPAY ==
[2024-02-24 14:47] VITALS: BMI 26.1
--- NOTE | 2024-04-01 11:16 | DI.MG.S_ITS ---
BILATERAL DIGITAL SCREENING MAMMOGRAM 3D/2D WITH CAD: 04/01/2024 CLINICAL: Routine screening. Comparison is made to exams dated: 03/29/2023 mammogram, 03/12/2022 mammogram, and 02/23/2021 mammogram - [facility]. Both breasts are heterogeneously dense, which may obscure small masses (category c / 51-75% glandular tissue). Current study was also evaluated with a Computer Aided Detection (CAD) system. There is a possible irregular asymmetry in the right breast anterior depth central to the nipple seen on the craniocaudal view only. Scattered benign calcifications. Breast implants have been removed. No other significant masses, calcifications, or other findings are seen in either breast. IMPRESSION: INCOMPLETE: NEEDS ADDITIONAL IMAGING EVALUATION The possible irregular asymmetry in the right breast is indeterminate. Additional views with possible ultrasound are recommended. Based on the Tyrer Cuzick model (a risk assessment model) the patient's lifetime risk is 11.1% and her 10 year risk is 3.2%. According to the ACR, ACS, and NCCN guidelines, an annual breast MRI exam along with mammogram is recommended if the patient's lifetime risk is 20% or greater. This exam was interpreted at Station ID: [id number]. NOTE: For mammograms, a report in lay terms will be sent to the patient. Approximately 15% of breast malignancies will not be visualized mammographically. In the management of a palpable breast mass, a negative mammogram must not discourage biopsy of a clinically suspicious lesion. Electronically Signed By: Ant Clark M.D. slc/:04/01/2024 15:44:31 letter sent: Additional Imaging Needed ACR BI-RADS Category 0: Incomplete 3340F
== END ==
PROVIDERS: Referring Provider Obstetrics & Gynecology; Visit Provider Obstetrics & Gynecology
DX: Z12.31 Encounter for screening mammogram for malignant neoplasm of breast (principal); R92.333 Mammographic heterogeneous density, bilateral breasts
CPT/HCPCS: 77063; 77067

== ENCOUNTER → 2024-04-16 10:06 | Outpatient (CLI) | payer BC, SELFPAY ==
[2024-02-24 14:47] VITALS: BMI 26.1
--- NOTE | 2024-04-16 10:07 | DI.MG.S_ITS ---
UNILATERAL RIGHT DIGITAL DIAGNOSTIC MAMMOGRAM 3D/2D WITH ADDITIONAL VIEWS: 04/16/2024 CLINICAL: Additional evaluation requested from prior study. Comparison is made to exams dated: 04/01/2024 mammogram - [facility], 05/23/2023 breast MRI - [facility], 03/29/2023 mammogram, and 03/12/2022 mammogram - [facility]. The breasts are heterogeneously dense, which may obscure small masses (category c / 51-75% glandular tissue). The previously described possible benign irregular asymmetry in the right breast anterior depth central to the nipple seen on the craniocaudal view only is not reproduced and presumably represented superimposed breast tissue. No other significant masses or calcifications are seen in the breast. IMPRESSION: BENIGN The previously described asymmetry disperses with additional views and is consistent with summation artifact. There is no mammographic evidence of malignancy. A 1 year screening mammogram is recommended. Findings and recommendations were conveyed to the patient during today's evaluation. Based on the Tyrer Cuzick model (a risk assessment model) the patient's lifetime risk is 11.1% and her 10 year risk is 3.2%. According to the ACR, ACS, and NCCN guidelines, an annual breast MRI exam along with mammogram is recommended if the patient's lifetime risk is 20% or greater. This exam was interpreted at Station ID: [id number]. NOTE: For mammograms, a report in lay terms will be sent to the patient. Approximately 15% of breast malignancies will not be visualized mammographically. In the management of a palpable breast mass, a negative mammogram must not discourage biopsy of a clinically suspicious lesion. Electronically Signed By: Leroy Garcia M.D. aty/:04/16/2024 10:39:50 letter sent: Normal Exam ACR BI-RADS Category 2: Benign 3342F
== END ==
LOC: MAMMO 10:06
PROVIDERS: Referring Provider Obstetrics & Gynecology; Visit Provider Obstetrics & Gynecology
DX: R92.8 Other abnormal and inconclusive findings on diagnostic imaging of breast (principal); R92.333 Mammographic heterogeneous density, bilateral breasts
CPT/HCPCS: 77065; G0279

== ENCOUNTER → 2024-07-16 14:05 | Outpatient (CLI) | payer OTHER, SELFPAY ==
[2024-02-24 14:47] VITALS: BMI 26.1
--- NOTE | 2024-07-16 14:07 | DI.RAD.S_ITS ---
PROCEDURE: XR WRIST RT MIN 3V INDICATIONS: Right wrist and hand injury TECHNIQUE: 4 views of the wrist were acquired. COMPARISON: None. FINDINGS: Bones: No fractures or dislocations. No suspicious bony lesions. Soft tissues: No suspicious soft tissue calcifications. IMPRESSION: No acute osseous abnormality. If pain persists with conservative management, consider repeat x-ray in 10-14 days or cross-sectional imaging. Dictated by: Messi Medrano M.D. on 07/16/2024 at 15:12 Approved by: Messi Medrano M.D. on 07/16/2024 at 15:13
--- NOTE | 2024-07-16 14:07 | DI.RAD.S_ITS ---
PROCEDURE: XR HAND RT MIN 3V INDICATIONS: Right wrist and hand injury TECHNIQUE: 3 views of the hand(s) acquired. COMPARISON: None. FINDINGS: Bones: No fractures or dislocations. Carpal bones are normally aligned. No suspicious bony lesions. Soft tissues: No suspicious soft tissue calcifications. IMPRESSION: No acute osseous abnormality. If pain persists with conservative management, consider repeat x-ray in 10-14 days or cross-sectional imaging. Dictated by: Messi Medrano M.D. on 07/16/2024 at 15:11 Approved by: Messi Medrano M.D. on 07/16/2024 at 15:12
== END ==
LOC: RAD 14:07
PROVIDERS: Referring Provider Physician Assistant Surgical; Visit Provider Physician Assistant Surgical
DX: S69.91XA Unspecified injury of right wrist, hand and finger(s), initial encounter (principal); X58.XXXA Exposure to other specified factors, initial encounter
CPT/HCPCS: 73110; 73130

== ENCOUNTER 2025-01-07 09:55 | Day surgery (SDC) | payer BC, SELFPAY ==
[2024-02-24 14:47] VITALS: BMI 26.1
--- NOTE | 2025-01-07 | PATH_ITS ---
[facility] Accession Number: [id number] No. of containers..01 Tissue . 01 Material submitted: . colon - DESCENDING POLYPS . 01 Diagnosis: DESCENDING COLON POLYPS: Tubular adenoma x1. Additional fragments of vegetable material. MRV 01/13/2025 1413 Local . 01 Electronically signed: . Bulmaro Burt MD, PhD, Pathologist NPI- [id number] . 01 Gross description: . DESCENDING POLYPS: Received in formalin are multiple fragment(s) of hwang, soft tissue measuring 0.1 x 0.1 x 0.1 cm to 0.2 x 0.2 x 0.2 cm submitted entirely in 1 cassette(s) /KIMO 01/12/2025 0106 Local . 01 Pathologist provided ICD-10: D12.4 . 01 CPT . 144463 Specimen Comment: A courtesy copy of this report has been sent to [phone] Performed at: [address] [address], [place], [place] [id number] MD Jonny Ochoa MD Phone: [phone]
--- NOTE | 2025-01-07 11:16 | PM.HP.IH.1 ---
History of Present Illness History of Present Illness Date Patient Seen: 01/07/25 Time Patient Seen: 11:16 Chief complaint: Colonoscopy Narrative: Loi is a 54-year-old woman who I saw in November for abdominal pain. See the office note for details. She has never had a colonoscopy before. [facility] Medical History (Updated 01/07/25 @ 11:17 by Miguel Chamberlain MD) Injury of right wrist Gestational diabetes Elevated BP without diagnosis of hypertension Menopausal symptom Acne Anxiety and depression Surgical History History of breast implant removal (10/2023) S/P foot surgery, left (07/21/21) History of shoulder surgery History of lumbar discectomy (03/09/20) History of foot surgery (2010) Hx of cholecystectomy History of carpal tunnel repair Status post breast augmentation Family History Father Age: 78 Non Hodgkin's lymphoma Heart attack Cancer Mother Age: 77 Stroke Type 2 diabetes mellitus Social History household members: spouse and children alcohol intake: current Meds Home Medications and Allergies Home Medications ?Medication ?Instructions ?Recorded ?Confirmed ?Type cholecalciferol (vitamin D3) 25 1,000 iu PO DAILY ##0 04/27/11 11/30/24 History mcg (1,000 unit) tablet (Vitamin D3) prasterone (dhea) 25 mg tablet 25 mg PO DAILY 02/17/24 11/30/24 History (DHEA) topiramate 25 mg tablet 75 mg PO BID Appetite control 02/17/24 11/30/24 History niacinamide 500 mg tablet 500 mg PO DAILY 02/24/24 11/30/24 History spironolactone 25 mg tablet 25 mg PO BID #180 tabs 04/08/24 11/30/24 Rx W-Biest/Prog topical 07/16/24 07/16/24 History sodium,potassium,mag sulfates 17.5 See Rx Instructions PO .COMPLEX 12/10/24 Rx gram-3.13 gram-1.6 gram oral soln #354 mL (Suprep Bowel Prep Kit) venlafaxine 75 mg capsule,extended 75 mg PO 3XD #270 caps 12/21/24 Rx release 24 hr Allergies Allergy/AdvReac Type Severity Reaction Status Date / Time codeine (CODEINE) AdvReac Severe Makes me Verified 11/30/24 11:05 out of it hydrocodone AdvReac Severe Headache Verified 11/30/24 11:05 Exam Const General: No acute distress Resp Effort & Inspection: normal respiratory effort Assessment & Plan Assessment and plan (1) Colon cancer screening: Status: Acute Plan Colonoscopy Time-Based Coding :: [TOTAL MINUTES] spent with patient and on the chart (including review of chart, obtaining history, exam, reviewing outside data, placing orders, documenting exam and treatment plan, and counseling patient) on [DATE]. IH PROFEE Design Specialist Document charge(s): No
[2025-01-07 11:17] VITALS: BP 133/85; PULSE 74; RESP 16; TEMP 36.4; O2SAT 100
[2025-01-07] MEDS: LACTATED RINGERS 1,000 ML 42 ML IV (11:25)
--- NOTE | 2025-01-07 12:17 | PM.OP.COLON ---
Operative Date/Time/Diagnoses Date of procedure: 01/07/25 Time of procedure: 12:17 Pre-op diagnosis: Colon cancer screening Post-op diagnosis: same Procedure & Clinicians Study performed: Colonoscopy Same procedure as scheduled: Yes Surgeon: Miguel Chamberlain Procedure Notes Procedure in detail: Surgeon: Miguel Chamberlain MD Anesthesia: Cara Franco CRNA Procedure: The patient was brought to the endoscopy suite, placed in left lateral decubitus position. The patient was connected to monitoring devices. A time-out was performed. Sedation was administered. Once the patient was adequately sedated, a digital rectal exam was performed and was normal. The scope was then inserted and advanced to the cecum where the appendiceal orifice was identified and photographed. The scope was then slowly withdrawn over greater than 6 minutes. The mucosa was thoroughly inspected. There were 2 small polyps in the descending colon removed with cold snare and sent together. The scope was retroflexed in the rectum. No other abnormalities were found. The scope was straightened and removed. The patient was awakened and brought to recovery. Scope withdrawal time: 11 minutes Sedation time: 21 minutes EBL: 2 mL Findings: 2 small polyps in the descending colon Post-procedure Disposition: PACU
[2025-01-07 12:19] VITALS: BP 97/62; PULSE 70; RESP 12; TEMP 36.1; O2SAT 100
[2025-01-07 12:26] VITALS: BP 106/73; PULSE 69; RESP 14; TEMP 36.2; O2SAT 99
== END 2025-01-07 12:38 | disposition home or self-care (01) ==
PROVIDERS: Referring Provider Surgery; Visit Provider Surgery
PROC: 0DJD8ZZ Inspection of Lower Intestinal Tract, Via Natural or Artificial Opening Endoscopic (ICD-10-PCS; CPT 45378; principal; 2025-01-07 11:00)
DX: Z12.11 Encounter for screening for malignant neoplasm of colon (principal); D12.4 Benign neoplasm of descending colon
CPT/HCPCS: 45385; J2704

== ENCOUNTER → 2025-05-24 13:14 | Outpatient (CLI) | payer BC, SELFPAY ==
[2024-02-24 14:47] VITALS: BMI 26.1
[2025-05-24 14:03] LABS: Add Manual Diff / Slide Review NO; Hematocrit 37.7 % (36-46); Hemoglobin 12.9 g/dL (12.0-16.0); Lymphocytes Absolute Auto 1400 /uL (1100-4500); Mean Corpuscular HGB Conc 34.2 % (30-36); Mean Corpuscular Hemoglobin 31.3 PG (26-34); Mean Corpuscular Volume 91.7 fL (80-100); Platelet Count 297 X10^3/uL (150-400)
[2025-05-24 14:33] LABS: Alanine Aminotransferase 11 IU/L (<35); Albumin 4.4 g/dL (3.5-5.0); Albumin Globulin Ratio 1.4 (1.0-2.8); Alkaline Phosphatase 68 U/L (38-126); Blood Urea Nitrogen 13 mg/dL (7-17); Calcium 9.4 mg/dL (8.4-10.2); Carbon Dioxide 21 mmol/L (22-32); Chloride 108 mmol/L (98-107); Estimated Glomerular Filt Rate > 60 mL/min (>60); Globulin 3.2 g/dL (1.7-4.1); Glucose 74 mg/dL (70-99); HEMOLYSIS < 15 (0-50); Potassium 3.9 mmol/L (3.4-5.1); Sodium 139 mmol/L (137-145); Total Protein 7.6 g/dL (6.3-8.2)
[2025-05-24 14:50] LABS: Vitamin D 25 Hydroxy (D3) 55.6 ng/mL (30.0-100.0)
== END ==
PROVIDERS: PCP Family Medicine; Referring Provider Family Medicine; Visit Provider Family Medicine
DX: Z78.0 Asymptomatic menopausal state (principal); L65.9 Nonscarring hair loss, unspecified; Z79.899 Other long term (current) drug therapy; L70.0 Acne vulgaris; Z79.890 Hormone replacement therapy; Z76.89 Persons encountering health services in other specified circumstances
CPT/HCPCS: 36415; 80053; 82306; 82672; 84144; 84402; 84403; 84999; 85025

== ENCOUNTER → 2025-06-28 11:00 | Outpatient (CLI) | payer BC, SELFPAY ==
[2024-02-24 14:47] VITALS: BMI 26.1
== END ==
PROVIDERS: PCP Family Medicine; Visit Provider Family Medicine
DX: N39.0 Urinary tract infection, site not specified (principal)
CPT/HCPCS: 87086

== ENCOUNTER → 2025-07-20 15:15 | Outpatient (CLI) | payer BC, SELFPAY ==
[2024-02-24 14:47] VITALS: BMI 26.1
--- NOTE | 2025-07-20 15:15 | DI.MG.S_ITS ---
MM screening mammo BI: 07/20/2025. BI-RADS: 1 CLINICAL: 55-year old female for bilateral screening mammogram. Tyrer-Cuzick lifetime risk of 11.6%. No personal or first-degree family history of breast cancer. PRIOR EXAMS 04/16/2024, 04/01/2024, 05/23/2023, 03/29/2023, MAMMOGRAPHY TECHNIQUE: 2D and 3D (tomosynthesis) digital mammographic views obtained, with additional images as needed for full coverage. Current study was also evaluated with a Computer Aided Detection (CAD) system. DENSITY C. The breasts are heterogeneously dense, which may obscure small masses. MAMMOGRAPHY FINDINGS Bilateral: No suspicious mass, asymmetry, microcalcification, or other abnormality seen. IMPRESSION: * No evidence of malignancy. RECOMMENDATIONS Bilateral * Annual screening mammography. OVERALL ASSESSMENT CATEGORY BI-RADS-1: Negative. [employer] recommends annual screening mammography beginning at age 40 for women with average risk of breast cancer. ELECTRONICALLY SIGNED: Ant Clark M.D. on 07/21/2025 at 12:00:38 PM PT Interpreting Station ID: [id number]
== END ==
LOC: MAMMO 15:15
PROVIDERS: PCP Family Medicine; Referring Provider Family Medicine; Visit Provider Family Medicine
DX: Z12.31 Encounter for screening mammogram for malignant neoplasm of breast (principal); R92.333 Mammographic heterogeneous density, bilateral breasts
CPT/HCPCS: 77063; 77067